=== PATIENT | female | born 1985 | race American Indian/Alaskan Native ===

== ENCOUNTER 2021-12-05 18:10 | Inpatient (IN) | payer MEDICAID ==
[2021-12-05] MEDS ORDERED: SODIUM CHLORIDE 0.9% 1000 ML 1,000 ML IV ONE (18:42)
[2021-12-05] MEDS ORDERED: ONDANSETRON 4 MG/2 ML INJ IV ONE (18:42)
[2021-12-05] MEDS ORDERED: MORPHINE 4 MG/1 ML INJ IV ONE (18:42)
--- NOTE | 2021-12-05 18:52 | Emergency Department Report ---
ED Abdominal Pain HPI - General Chief Complaint: Abdominal Pain Stated Complaint: RT SIDE FLANK PAIN Time Seen by Provider: 12/05/21 18:30 Source: patient Mode of arrival: Ambulatory Limitations: No Limitations - History of Present Illness Initial Comments: 36-year-old female presents to the ER today with complaints of right lower quadrant pain. Patient states her symptoms started yesterday. She described as a sharp pain which has been constant in nature. She states that the pain got worse today. She reports associated nausea and vomiting and decrease appetite and she reports temp of 101. She states she went to urgent care today and they sent her here to rule out appendicitis. She states her [facility] was 11/26/21. She denies abnl UTI or vag symptoms. She denies any abdominal surgery. MD Complaint: abdominal pain -: days(s) (1) - Related Data Allergies Allergy/AdvReac Type Severity Reaction Status Date / Time No Known Allergies Allergy Verified 12/05/21 18:18 ED Review of Systems ROS: Stated complaint: RT SIDE FLANK PAIN Other details as noted in HPI Comment: All other systems reviewed and negative Constitutional: fever ENT: denies: ear pain, throat pain Respiratory: denies: cough, shortness of breath, SOB with exertion, SOB at rest, wheezing Cardiovascular: denies: chest pain, palpitations Endocrine: no symptoms reported Gastrointestinal: abdominal pain, nausea, vomiting. denies: diarrhea, constipation, hematemesis, hematochezia Genitourinary: denies: urgency, dysuria, frequency, hematuria, discharge, abnormal menses, dyspareunia Musculoskeletal: denies: back pain, joint swelling, arthralgia Skin: as per HPI. denies: rash, lesions, change in color, change in hair/nails, pruritus Neurological: denies: headache, weakness, numbness, paresthesias, confusion, abnormal gait, vertigo Psychiatric: denies: anxiety, depression, auditory hallucinations, visual hallucinations, homicidal thoughts, suicidal thoughts Hematological/Lymphatic: denies: easy bleeding, easy bruising, swollen glands ED Past Medical Hx - Past Medical History Previous Medical History?: No - Surgical History Past Surgical History?: No ED Physical Exam - General Limitations: No Limitations General appearance: alert, in distress (mild due to pain ) - Head Head exam: Present: atraumatic, normocephalic, normal inspection - Eye Eye exam: Present: normal appearance, PERRL, EOMI Pupils: Present: normal accommodation - Neck Neck exam: Present: normal inspection, full ROM - Respiratory Respiratory exam: Present: normal lung sounds bilaterally. Absent: respiratory distress, wheezes, rales, rhonchi, stridor - Cardiovascular Cardiovascular Exam: Present: regular rate, normal rhythm, normal heart sounds - GI/Abdominal GI/Abdominal exam: Present: soft, tenderness (RLQ with guarding ), guarding. Absent: distended, rebound, rigid - Neurological Exam Neurological exam: Present: alert, oriented X3, CN II-XII intact, normal gait - Psychiatric Psychiatric exam: Present: normal affect, normal mood - Skin Skin exam: Present: intact ED Course Vital Signs 12/05/21 18:18 Temperature 99.6 F Pulse Rate 107 H Respiratory 16 Rate Blood Pressure 144/88 [Left] O2 Sat by Pulse 100 Oximetry ED Medical Decision Making - Lab Data Result diagrams: 12/05/21 18:56 12/05/21 18:56 Laboratory Tests 12/05/21 12/05/21 12/05/21 18:56 18:56 18:56 WBC 11.5 H RBC 4.59 Hgb 11.2 Hct 33.4 MCV 73 L MCH 24 L MCHC 33 RDW 16.9 H Plt Count 402 Seg Neutrophils % Boiler/Chiller Operator Sodium 135 L Potassium 4.0 Chloride 96.1 L Carbon Dioxide 23 Anion Gap 20 BUN 7 Creatinine 0.7 Estimated GFR > 60 BUN/Creatinine Ratio 10 Glucose 134 H Calcium 9.4 Total Bilirubin 0.50 Direct Bilirubin < 0.2 Indirect Bilirubin 0.3 AST 15 ALT 11 Alkaline Phosphatase 65 Total Protein 8.5 H Albumin 4.2 Albumin/Globulin Ratio 1.0 Lipase 8 L HCG, Qual Negative Urine Color Urine Turbidity Urine pH Ur Specific [place] Urine Protein Urine Glucose (UA) Urine Ketones Urine Blood Urine Nitrite Ur Reducing Substances Urine Bilirubin Urine Ictotest Urine Urobilinogen Ur Leukocyte Esterase Urine WBC (Auto) Urine RBC (Auto) U Epithel Cells (Auto) Urine Bacteria (Auto) Urine Mucus Urine Yeast (Budding) 12/05/21 Unknown WBC RBC Hgb Hct MCV MCH MCHC RDW Plt Count Seg Neutrophils % Sodium Potassium Chloride Carbon Dioxide Anion Gap BUN Creatinine Estimated GFR BUN/Creatinine Ratio Glucose Calcium Total Bilirubin Direct Bilirubin Indirect Bilirubin AST ALT Alkaline Phosphatase Total Protein Albumin Albumin/Globulin Ratio Lipase HCG, Qual Urine Color Yellow Urine Turbidity Turbid Urine pH 5.0 Ur Specific [place] 1.026 Urine Protein 30 mg/dl Urine Glucose (UA) Neg Urine Ketones 20 Urine Blood Neg Urine Nitrite Neg Ur Reducing Substances Not Reportable Urine Bilirubin Neg Urine Ictotest Not Reportable Urine Urobilinogen < 2.0 Ur Leukocyte Esterase Neg Urine WBC (Auto) 57.0 H Urine RBC (Auto) 10.0 U Epithel Cells (Auto) 8.0 Urine Bacteria (Auto) 1+ Urine Mucus 3+ Urine Yeast (Budding) 3+ - Radiology Data Radiology results: report reviewed Patient: GABRIELA ALLEN MR#: [id number] : 1985 Acct:[id number] Age/Sex: 36 / F ADM Date: 12/05/21 Loc: ED Attending Dr: Ordering Physician: MELINA MANUEL Date of Service: 12/05/21 Procedure(s): CT abdomen pelvis w con Accession Number(s): [id number] cc: MELINA MANUEL CT ABDOMEN AND PELVIS WITH INTRAVENOUS CONTRAST INDICATION / CLINICAL INFORMATION: RLQ pain. TECHNIQUE: 100 cc Omnipaque [address] scans at this location are performed using CT dose reduction for ALARA by means of automated exposure control. COMPARISON: None available. FINDINGS: ABDOMEN: There is an extensive inflammatory process in the right abdomen. There is localized extraluminal gas in the right lower quadrant in the mesenteric fat. There is a dilated tubular structure in the right lower quadrant which contains gas and fluid. There are a couple of large calcifications in or adjacent to the tubular structure characteristic of appendicoliths. There is prominent inflammation involving the fat in this region, extending both superiorly and inferiorly. There is a vhsh-hs-bpvnfjut amount of free fluid in the mid to lower pelvis. There is mild or free fluid in the right paracolic gutter extending to the inferior margin of the liver. The liver, spleen, gallbladder, bile ducts, pancreas, adrenal glands and kidneys are normal. No adenopathy is present. The lung bases are clear. PELVIS: There is a kvui-oq-rfxaekue amount of free fluid in the mid to lower pelvis. There is inflammation involving the fat in the right lower quadrant and pelvis. There are multiple uterine fibroids. I do not identify an ovarian mass. There is no evidence of colonic diverticulosis. I do not identify a hernia. No acute osseous abnormality is present. IMPRESSION: Moderately severe inflammatory process centered in the right lower quadrant is likely related to perforated acute appendicitis. There is associated localized extraluminal gas. Also present are phlegmon, free fluid and a couple of large appendicoliths. No drainable fluid collection is seen. There is no evidence of bowel obstruction. Signer Name: James Clark MD Signed: 12/05/2021 9:07 PM Workstation Name: [id number] Transcribed By: RT Dictated By: James Clark MD Electronically Authenticated By: James Clark MD Signed Date/Time: 12/05/212106 DD/ 99 TD/TT: - Medical Decision Making 2114: All labs reviewed including CT abdomen and pelvis with IV contrast which showed Moderately severe inflammatory process centered in the right lower quadrant is likely related to perforated acute appendicitis. There is associated localized extraluminal gas. Also present are phlegmon, free fluid and a couple of large appendicoliths. No drainable fluid collection is seen. There is no evidence of bowel obstruction. 2123: Discussed case with Dr espinoza, she recommend continued IV abx for now and she will likely take patient to OR tomorrow. Pt to be admitted to hospitalist 2128: Discussed case with Hospitalist, Dr Hanna for admission 2129: Discussed CT results with patient. She was made aware of the reason for admission. She expressed understanding and agreed with plan. She is currently resting comfortably and is stable. Critical care attestation.: If time is entered above; I have spent that time in minutes in the direct care of this critically ill patient, excluding procedure time. ED Disposition Clinical Impression: Perforated appendicitis Disposition: ADMITTED INPATIENT Is pt being admited?: Yes Condition: Stable Instructions: Abdominal Pain (ED)
[2021-12-05 19:16] LABS: Bacteria,Urine 1+ /HPF (Negative); Mucus,Urine 3+ /HPF
[2021-12-05 19:30] LABS: Alanine Aminotransferase 11 units/L (7-56); Albumin 4.2 g/dL (3.9-5); Blood Urea Nitrogen 7 mg/dL (7-17); Calcium 9.4 mg/dL (8.4-10.2); Hemolysis Index 9
[2021-12-05 19:34] LABS: Bilirubin,Urine NEG (Negative); Blood,Urine NEG (Negative); Color,Urine Yellow (Yellow); Urobilinogen,Urine < 2.0 mg/dL (<2.0)
[2021-12-05 19:38] LABS: BUN/Creatinine Ratio 10; Bilirubin,Direct < 0.2 mg/dL (0-0.2)
[2021-12-05 19:44] LABS: Hematocrit 33.4 % (30.3-42.9); Hemoglobin 11.2 gm/dl (10.1-14.3); Mean Corpuscular HGB Conc 33 % (30-34); Mean Corpuscular Volume 73 fl (79-97); Platelet Count 402 K/mm3 (140-440); Red Blood Count 4.59 M/mm3 (3.65-5.03); Red Cell Distribution Width 16.9 % (13.2-15.2)
--- NOTE | 2021-12-05 21:11 | Cat Scan Report ---
CT ABDOMEN AND PELVIS WITH INTRAVENOUS CONTRAST INDICATION / CLINICAL INFORMATION: RLQ pain. TECHNIQUE: 100 cc Omnipaque [address] scans at this location are performed using CT d ose reduction for SHERI by means of automated exposure control. COMPARISON: None available. FINDINGS: ABDOMEN: There is an extensive inflammatory process in the right abdomen. There is localized extralum inal gas in the right lower quadrant in the mesenteric fat. There is a dilated tubular structure in t he right lower quadrant which contains gas and fluid. There are a couple of large calcifications in o r adjacent to the tubular structure characteristic of appendicoliths. There is prominent inflammation involving the fat in this region, extending both superiorly and inferiorly. There is a uzoj-pj-secda ate amount of free fluid in the mid to lower pelvis. There is mild or free fluid in the right paracol ic gutter extending to the inferior margin of the liver. The liver, spleen, gallbladder, bile ducts, pancreas, adrenal glands and kidneys are normal. No adeno cameron is present. The lung bases are clear. PELVIS: There is a tpiu-dq-irsmansz amount of free fluid in the mid to lower pelvis. There is inflamm ation involving the fat in the right lower quadrant and pelvis. There are multiple uterine fibroids. I do not identify an ovarian mass. There is no evidence of colonic diverticulosis. I do not identify a hernia. No acute osseous abnormality is present. IMPRESSION: Moderately severe inflammatory process centered in the right lower quadrant is likely rel ated to perforated acute appendicitis. There is associated localized extraluminal gas. Also present a re phlegmon, free fluid and a couple of large appendicoliths. No drainable fluid collection is seen. There is no evidence of bowel obstruction. Signer Name: James Clark MD Signed: 12/05/2021 9:07 PM Workstation Name: [id number]
[2021-12-05] MEDS ORDERED: PIPERACILLIN/TAZOBACTAM 3.375 3.375 GM/50 ML BAG IV ONE (21:14)
[2021-12-05] MEDS ORDERED: ALBUTEROL 2.5 MG/3 ML NEBU IH PRN (21:41)
--- NOTE | 2021-12-05 21:47 | History and Physical Report ---
History of Present Illness Date of examination: 12/05/21 Date of admission: 12/05/21 Chief complaint: Abdominal pain History of present illness: 36-year-old female with no significant past medical history was brought to the emergency room because of right lower quadrant pain which is sharp 8/10 constant since yesterday. She states that the pain got worse today. She reports associated nausea and vomiting and decrease appetite and she reports temp of 101. She states she went to urgent care today and they sent her here to rule out appendicitis. She states her [facility] was 11/26/21. She denies abnl UTI or vag symptoms. She denies any abdominal surgery. In the emergency room CT scan of the abdomen pelvis showed moderately severe inflammatory process centered in the right lower quadrant is likely related to perforated acute appendicitis. Subsequently Case was discussed with surgery's were going to admit the patient put the patient on Zosyn 4.5 g IV every [address] Baker will take the patient to the OR in the morning Past History Past Medical History: No medical history Past Surgical History: No surgical history Social history: single, full code Family history: no significant family history Medications and Allergies Allergies Allergy/AdvReac Type Severity Reaction Status Date / Time No Known Allergies Allergy Verified 12/05/21 18:18 Review of Systems Gastrointestinal: abdominal pain, nausea, vomiting Exam - Constitutional Vitals: Temp Pulse Resp BP Pulse Ox 99.6 F 107 H 16 144/88 100 12/05/21 18:18 12/05/21 18:18 12/05/21 18:18 12/05/21 18:18 12/05/21 18:18 General appearance: Present: no acute distress, well-nourished - EENT Eyes: Present: PERRL ENT: hearing intact, clear oral mucosa - Neck Neck: Present: supple, normal ROM - Respiratory Respiratory effort: normal Respiratory: bilateral: CTA - Cardiovascular Heart Sounds: Present: S1 & S2. Absent: rub, click - Extremities Extremities: pulses symmetrical, No edema Peripheral Pulses: within normal limits - Abdominal General gastrointestinal: Present: soft, tender, non-distended, normal bowel sounds Female genitourinary: Present: normal - Integumentary Integumentary: Present: clear, warm, dry - Musculoskeletal Musculoskeletal: gait normal, strength equal bilaterally - Psychiatric Psychiatric: appropriate mood/affect, intact judgment & insight - Neurologic Neurologic: CNII-XII intact, moves all extremities Results - Labs CBC & Chem 7: 12/05/21 18:56 12/05/21 18:56 Labs: Laboratory Last Values WBC 11.5 K/mm3 (4.5-11.0) H 12/05/21 18:56 RBC 4.59 M/mm3 (3.65-5.03) 12/05/21 18:56 Hgb 11.2 gm/dl (10.1-14.3) 12/05/21 18:56 Hct 33.4 % (30.3-42.9) 12/05/21 18:56 MCV 73 fl (79-97) L 12/05/21 18:56 MCH 24 pg (28-32) L 12/05/21 18:56 MCHC 33 % (30-34) 12/05/21 18:56 RDW 16.9 % (13.2-15.2) H 12/05/21 18:56 Plt Count 402 K/mm3 (140-440) 12/05/21 18:56 Seg Neutrophils % Reel Repairer 12/05/21 18:56 Sodium 135 mmol/L (137-145) L 12/05/21 18:56 Potassium 4.0 mmol/L (3.6-5.0) 12/05/21 18:56 Chloride 96.1 mmol/L (98-107) L 12/05/21 18:56 Carbon Dioxide 23 mmol/L (22-30) 12/05/21 18:56 Anion Gap 20 mmol/L 12/05/21 18:56 BUN 7 mg/dL (7-17) 12/05/21 18:56 Creatinine 0.7 mg/dL (0.6-1.2) 12/05/21 18:56 Estimated GFR > 60 ml/min 12/05/21 18:56 BUN/Creatinine Ratio 10 % 12/05/21 18:56 Glucose 134 mg/dL (65-100) H 12/05/21 18:56 Calcium 9.4 mg/dL (8.4-10.2) 12/05/21 18:56 Total Bilirubin 0.50 mg/dL (0.1-1.2) 12/05/21 18:56 Direct Bilirubin < 0.2 mg/dL (0-0.2) 12/05/21 18:56 Indirect Bilirubin 0.3 mg/dL 12/05/21 18:56 AST 15 units/L (5-40) 12/05/21 18:56 ALT 11 units/L (7-56) 12/05/21 18:56 Alkaline Phosphatase 65 units/L (35-129) 12/05/21 18:56 Total Protein 8.5 g/dL (6.3-8.2) H 12/05/21 18:56 Albumin 4.2 g/dL (3.9-5) 12/05/21 18:56 Albumin/Globulin Ratio 1.0 % 12/05/21 18:56 Lipase 8 units/L (13-60) L 12/05/21 18:56 HCG, Qual Negative (Negative) 12/05/21 18:56 Urine Color Yellow (Yellow) 12/05/21 Unknown Urine Turbidity Turbid (Clear) 12/05/21 Unknown Urine pH 5.0 (5.0-7.0) 12/05/21 Unknown Ur Specific [place] 1.026 (1.003-1.030) 12/05/21 Unknown Urine Protein 30 mg/dl mg/dL (Negative) 12/05/21 Unknown Urine Glucose (UA) Neg mg/dL (Negative) 12/05/21 Unknown Urine Ketones 20 mg/dL (Negative) 12/05/21 Unknown Urine Blood Neg (Negative) 12/05/21 Unknown Urine Nitrite Neg (Negative) 12/05/21 Unknown Ur Reducing Substances Not Reportable 12/05/21 Unknown Urine Bilirubin Neg (Negative) 12/05/21 Unknown Urine Ictotest Not Reportable 12/05/21 Unknown Urine Urobilinogen < 2.0 mg/dL (<2.0) 12/05/21 Unknown Ur Leukocyte Esterase Neg (Negative) 12/05/21 Unknown Urine WBC (Auto) 57.0 /HPF (0.0-6.0) H 12/05/21 Unknown Urine RBC (Auto) 10.0 /HPF (0.0-6.0) 12/05/21 Unknown U Epithel Cells (Auto) 8.0 /HPF (0-13.0) 12/05/21 Unknown Urine Bacteria (Auto) 1+ /HPF (Negative) 12/05/21 Unknown Urine Mucus 3+ /HPF 12/05/21 Unknown Urine Yeast (Budding) 3+ /HPF 12/05/21 Unknown - Imaging and Cardiology CT scan - abdomen: report reviewed Assessment and Plan VTE prophylaxis?: Mechanical Plan of care discussed with patient/family: Yes - Patient Problems (1) Perforated appendicitis Status: Acute Plan to address problem: Admit the patient to the medical floor. NPO. D5 half-normal saline at the rate of 100 cc/h. Zosyn 4.5 g IV every 8 hours. We consult surgery Dr. Baker to see the patient in the morning for evaluation and possible surgery (2) Acute abdominal pain Status: Acute Plan to address problem: NPO. D5 half-normal saline at the rate of 100 cc/h. Pepcid 20 mg IV every 12 hours. Morphine 2 mg IV every 4 hours as needed (3) DVT prophylaxis Status: Acute Plan to address problem: SCD for DVT prophylaxis. Pepcid 20 mg IV every 12 hours for GI prophylaxis. Patient is a full code
[2021-12-05 21:52] LABS: Anisocytosis RARE; Basophils % (Manual) 0 % (0.0-1.8); Eosinophils % (Manual) 0 % (0.0-4.3); Hypochromasia 1+; Total Cells Counted 100
[2021-12-05] MEDS: FAMOTIDINE 20 MG/2 ML INJ IV SCH (22:10)
[2021-12-05] MEDS: HYDROmorphone 1 MG/1 ML INJ IV PRN (22:10)
[2021-12-06] MEDS: MORPHINE 2 MG/1 ML INJ IV PRN (00:38)
[2021-12-06] MEDS: D5W/0.45% NACL 1,000 ML IV SCH (00:39)
[2021-12-06] MEDS: HYDROmorphone 1 MG/1 ML INJ IV PRN ×2 (04:54→20:32)
[2021-12-06] MEDS: ACETAMINOPHEN 325 MG TAB PO PRN (04:56)
[2021-12-06] MEDS: PIPERACIL/TAZOBACTA 4.5/NS 100 4.5 GM/100 ML VIAL IV SCH ×3 (05:01→21:46)
[2021-12-06 06:01] LABS: Basophils % (Auto) 0.1 % (0.0-1.8); Hematocrit 32.4 % (30.3-42.9); Hemoglobin 10.3 gm/dl (10.1-14.3); Lymphocytes # (Auto) 0.4 K/mm3 (1.2-5.4); Mean Corpuscular HGB Conc 32 % (30-34); Mean Corpuscular Volume 73 fl (79-97); Monocytes # (Auto) 0.5 K/mm3 (0.0-0.8); Monocytes % (Auto) 6.7 % (0.0-7.3); Platelet Count 343 K/mm3 (140-440); Red Blood Count 4.44 M/mm3 (3.65-5.03); Red Cell Distribution Width 16.8 % (13.2-15.2)
[2021-12-06 06:13] LABS: BUN/Creatinine Ratio 7; Blood Urea Nitrogen 6 mg/dL (7-17); Hemolysis Index 3
[2021-12-06] MEDS ORDERED: HYDROmorphone 1 MG/1 ML INJ IV PRN (09:18)
--- NOTE | 2021-12-06 09:18 | Anesthesia Day of Surgery ---
Anesthesia Day of Surgery - Day of Surgery Patient Examined: Yes Patient H&P Reviewed: Yes Patient is NPO: Yes
--- NOTE | 2021-12-06 09:18 | Anesthesia Consultation ---
Anesthesia Consult and Med Hx Date of service: 12/06/21 - Airway Anesthetic Teeth Evaluation: Good ROM Head & Neck: Adequate Mental/Hyoid Distance: Adequate Mallampati Class: Class III Intubation Access Assessment: Possibly Difficult - Pre-Operative Health Status ASA Pre-Surgery Classification: ASA1 Proposed Anesthetic Plan: General - Pulmonary Hx Smoking: No Hx Respiratory Symptoms: No - Cardiovascular System Hx Hypertension: No - Central Nervous System CVA: No - Endocrine Hx Renal Disease: No Hx Liver Disease: No Hx Insulin Dependent Diabetes: No Hx Non-Insulin Dependent Diabetes: No Hx Thyroid Disease: No - Hematic Hx Anemia: Yes - Additional Comments Anesthesia Medical History Comments: No hx anesthetic complications.
--- NOTE | 2021-12-06 09:18 | Consultation ---
History of Present Illness Consult date: 12/06/21 Reason for consult: abdominal pain Chief complaint: Abdominal pain - History of present illness History of present illness: 36-year-old female with no past medical history who presented to the emergency r o with complaints of right lower abdominal pain that started 2 days ago. She states the pain started all of a sudden after she went out for dinner. The pain is sharp and localized to the right lower quadrant and does not radiate. Initially she thought it was food poisoning as she was also experiencing nausea, vomiting, diarrhea. She tried to take some medications at home which did not help. She took her temperature which was 101 and this prompted her to go to the urgent care. When she was evaluated at urgent care, she was advised to go to the emergency room for additional testing. In the emergency room she was found to be mildly tachycardic and a CT scan of the abdomen and pelvis revealed acute appendicitis with localized perforation. Today the patient states that she feels slightly better and her pain is well managed with medication being prescribed in the hospital. She has not had any vomiting. T-max of 103 as reported by patient's RN. Past History Past Medical History: No medical history Past Surgical History: No surgical history Social history: single, full code Family history: no significant family history Medications and Allergies Allergies Allergy/AdvReac Type Severity Reaction Status Date / Time No Known Allergies Allergy Verified 12/05/21 18:18 Active Meds: Active Medications Acetaminophen (Acetaminophen 325 Mg Tab) 650 mg PO Q4H PRN PRN Reason: Pain MILD(1-3)/Fever >100.5/VELASQUEZ Last Admin: 12/06/21 04:56 Dose: 650 mg Albuterol (Albuterol 2.5 Mg/3 Ml Nebu) 2.5 mg IH Q3HRT PRN PRN Reason: Shortness Of Breath Albuterol/Ipratropium (Ipratropium/Albuterol Sulfate 3 Ml Ampul.Neb) 1 ampul IH Q6HRT [facility] Famotidine (Famotidine 20 Mg/2 Ml Inj) 20 mg IV BID VITO Last Admin: 12/05/21 22:10 Dose: 20 mg Hydromorphone HCl (Hydromorphone 1 Mg/1 Ml Inj) 0.5 mg IV Q3H PRN PRN Reason: Pain , Severe (7-10) Last Admin: 12/06/21 04:54 Dose: 0.5 mg Dextrose/Sodium Chloride (D5/0.45ns) 1,000 mls @ 100 mls/hr IV DIRECT VITO Last Admin: 12/06/21 00:39 Dose: 100 mls/hr Piperacillin Sod/Tazobactam Sod (Zosyn/Ns 4.5gm/100ml) 4.5 gm in 100 mls @ 200 mls/hr IV Q8H VITO; Protocol Last Infusion: 12/06/21 05:40 Dose: Infused Morphine Sulfate (Morphine 2 Mg/1 Ml Inj) 2 mg IV Q4H PRN PRN Reason: Pain, Moderate (4-6) Last Admin: 12/06/21 00:38 Dose: 2 mg Ondansetron HCl (Ondansetron 4 Mg/2 Ml Inj) 4 mg IV Q8H PRN PRN Reason: Nausea And Vomiting Sodium Chloride (Sodium Chloride 0.9% 10 Ml Flush Syringe) 10 ml IV BID VITO Last Admin: 12/05/21 22:10 Dose: 10 ml Sodium Chloride (Sodium Chloride 0.9% 10 Ml Flush Syringe) 10 ml IV PRN PRN PRN Reason: LINE FLUSH Review of Systems All systems: negative (10 point ROS performed and negative except for that listed in HPI) Exam Vital Signs Temp Pulse Resp BP Pulse Ox 99.6 F 107 H 16 144/88 100 12/05/21 18:18 12/05/21 18:18 12/05/21 18:18 12/05/21 18:18 12/05/21 18:18 Narrative exam: Gen.: Awake, alert, oriented x3. No apparent distress ENT: Trachea midline. No lymphadenopathy. No scleral icterus or conjunctival pallor CV: S1, S2 present Respiratory: No audible wheezes Abdomen: Soft, nondistended, right lower quadrant tenderness to palpation with voluntary guarding. No rebound, rigidity Extremities: No clubbing, cyanosis, edema Results - Labs 12/06/21 05:25 12/06/21 05:25 Abnormal lab results 12/05/21 12/05/21 12/05/21 Range/Units 18:56 18:56 Unknown WBC 11.5 H (4.5-11.0) K/mm3 MCV 73 L (79-97) fl MCH 24 L (28-32) pg RDW 16.9 H (13.2-15.2) % Lymph % (Auto) (13.4-35.0) % Lymph # (Auto) (1.2-5.4) K/mm3 Seg Neutrophils % (40.0-70.0) % Seg Neuts % (Manual) 88.0 H (40.0-70.0) % Lymphocytes % (Manual) 5.0 L (13.4-35.0) % Seg Neutrophils # Man 10.1 H (1.8-7.7) K/mm3 Lymphocytes # (Manual) 0.6 L (1.2-5.4) K/mm3 Sodium 135 L (137-145) mmol/L Potassium (3.6-5.0) mmol/L Chloride 96.1 L (98-107) mmol/L BUN (7-17) mg/dL Glucose 134 H (65-100) mg/dL Calcium (8.4-10.2) mg/dL Total Protein 8.5 H (6.3-8.2) g/dL Lipase 8 L (13-60) units/L Urine WBC (Auto) 57.0 H (0.0-6.0) /HPF 12/06/21 12/06/21 Range/Units 05:25 05:25 WBC (4.5-11.0) K/mm3 MCV 73 L (79-97) fl MCH 23 L (28-32) pg RDW 16.8 H (13.2-15.2) % Lymph % (Auto) 5.0 L (13.4-35.0) % Lymph # (Auto) 0.4 L (1.2-5.4) K/mm3 Seg Neutrophils % 88.2 H (40.0-70.0) % Seg Neuts % (Manual) (40.0-70.0) % Lymphocytes % (Manual) (13.4-35.0) % Seg Neutrophils # Man (1.8-7.7) K/mm3 Lymphocytes # (Manual) (1.2-5.4) K/mm3 Sodium 134 L (137-145) mmol/L Potassium 3.3 L (3.6-5.0) mmol/L Chloride (98-107) mmol/L BUN 6 L (7-17) mg/dL Glucose 130 H (65-100) mg/dL Calcium 8.0 L (8.4-10.2) mg/dL Total Protein (6.3-8.2) g/dL Lipase (13-60) units/L Urine WBC (Auto) (0.0-6.0) /HPF Diabetes panel 12/05/21 12/06/21 Range/Units 18:56 05:25 Sodium 135 L 134 L (137-145) mmol/L Potassium 4.0 3.3 L (3.6-5.0) mmol/L Chloride 96.1 L 98.4 (98-107) mmol/L Carbon Dioxide 23 22 (22-30) mmol/L BUN 7 6 L (7-17) mg/dL Creatinine 0.7 0.9 (0.6-1.2) mg/dL Glucose 134 H 130 H (65-100) mg/dL Calcium 9.4 8.0 L (8.4-10.2) mg/dL AST 15 (5-40) units/L ALT 11 (7-56) units/L Alkaline Phosphatase 65 (35-129) units/L Total Protein 8.5 H (6.3-8.2) g/dL Albumin 4.2 (3.9-5) g/dL Calcium panel 12/05/21 12/06/21 Range/Units 18:56 05:25 Calcium 9.4 8.0 L (8.4-10.2) mg/dL Albumin 4.2 (3.9-5) g/dL Pituitary panel 12/05/21 12/06/21 Range/Units 18:56 05:25 Sodium 135 L 134 L (137-145) mmol/L Potassium 4.0 3.3 L (3.6-5.0) mmol/L Chloride 96.1 L 98.4 (98-107) mmol/L Carbon Dioxide 23 22 (22-30) mmol/L BUN 7 6 L (7-17) mg/dL Creatinine 0.7 0.9 (0.6-1.2) mg/dL Glucose 134 H 130 H (65-100) mg/dL Calcium 9.4 8.0 L (8.4-10.2) mg/dL Adrenal panel 12/05/21 12/06/21 Range/Units 18:56 05:25 Sodium 135 L 134 L (137-145) mmol/L Potassium 4.0 3.3 L (3.6-5.0) mmol/L Chloride 96.1 L 98.4 (98-107) mmol/L Carbon Dioxide 23 22 (22-30) mmol/L BUN 7 6 L (7-17) mg/dL Creatinine 0.7 0.9 (0.6-1.2) mg/dL Glucose 134 H 130 H (65-100) mg/dL Calcium 9.4 8.0 L (8.4-10.2) mg/dL Total Bilirubin 0.50 (0.1-1.2) mg/dL AST 15 (5-40) units/L ALT 11 (7-56) units/L Alkaline Phosphatase 65 (35-129) units/L Total Protein 8.5 H (6.3-8.2) g/dL Albumin 4.2 (3.9-5) g/dL - Imaging CT scan - abdomen: report reviewed, image reviewed CT scan - pelvis: report reviewed, image reviewed Assessment and Plan 36-year-old female with 1. acute appendicitis with localized perforation 2. sepsis 2/2 #1 Plan: 1. NPO 2. IV fluids 3. IV antibiotics -Zosyn 4. As needed pain and nausea control 5. DVT prophylaxis 6. Recommend OR for laparoscopic appendectomy, possible exploratory laparotomy, possible colon resection.. I discussed results of the CT scan along with these recommendations to the patient. All risks, benefits, alternatives to surgery were discussed including but not limited to infection, bleeding, injury to surrounding structures, possible conversion to open surgery, possible need for colon resection, need for drain, and any additional procedures. The patient understands and is agreeable. Consent obtained. We will proceed to the OR today. Thank you for this consultation. Please call with any questions or concerns. Evaluation and treatment of this patient was during the time of the national and state emergency arising from COVID19 coronavirus pandemic. Treatment and procedures performed meet the current and available best practice and guidelines for patient during the COVID pandemic.
[2021-12-06] MEDS: IPRATROPIUM/ALBUTEROL SULFATE 3 ML AMPUL.NEB IH SCH ×3 (09:37→21:26)
[2021-12-06] MEDS ORDERED: MIDAZOLAM 2 MG/2 ML INJ IV NR (10:00)
[2021-12-06] MEDS ORDERED: SCOPOLAMINE TRANSDERMAL PATCH 72 HR TD NR (10:00)
[2021-12-06] MEDS: LACTATED RINGERS 1,000 ML IV SCH ×2 (10:05→17:26)
[2021-12-06] MEDS ORDERED: LIDOCAINE (1%) 10 MG/1 ML VIAL 20 ML MDV ONE (10:35)
[2021-12-06] MEDS ORDERED: BUPIVACAINE/PF (0.5%) 5 MG/1 ML 30 ML VIAL INFILTRATI ONE ×2 (10:35→11:41)
[2021-12-06] MEDS ORDERED: ROCURONIUM 50 MG/5 ML INJ IV ONE ×2 (10:42→12:16)
[2021-12-06] MEDS ORDERED: fentaNYL 100 MCG/2 ML INJ ONE (10:42)
[2021-12-06] MEDS ORDERED: LIDOCAINE MPF (2%) 20 MG/1 ML VIAL 5 ML ONE (10:42)
[2021-12-06] MEDS ORDERED: propofoL 200 MG/20 ML VIAL IV ONE (10:43)
[2021-12-06] MEDS ORDERED: FAMOTIDINE 20 MG/2 ML INJ IV NR (11:00)
[2021-12-06] MEDS ORDERED: KETAMINE/STERILE WATER 50 MG/ML SYRINGE ONE (11:06)
[2021-12-06] MEDS ORDERED: MIDAZOLAM 2 MG/2 ML INJ ONE (11:06)
[2021-12-06] MEDS ORDERED: WATER FOR IRRIG STERILE 1,500 ML BOTTLE IR ONE (11:41)
[2021-12-06] MEDS ORDERED: SODIUM CHLORIDE 0.9% IRR 1,500 ML BOTTLE IR ONE (11:41)
[2021-12-06] MEDS ORDERED: LIDOCAINE (1%) 10 MG/1 ML VIAL 20 ML MDV INFILTRATI ONE (11:41)
[2021-12-06] MEDS ORDERED: SODIUM CHLORIDE 0.9% IRRIG SOLN 2000 ML IR ONE (11:55)
[2021-12-06] MEDS ORDERED: HYDROmorphone 1 MG/1 ML INJ ONE (12:02)
[2021-12-06] MEDS ORDERED: ACETAMINOPHEN IV 1,000 MG/100 ML BOTTLE IV NR (12:08)
[2021-12-06] MEDS ORDERED: LACTATED RINGERS 1,000 ML ONE ×2 (12:15→14:44)
--- NOTE | 2021-12-06 13:51 | Progress Note ---
Assessment and Plan Assessment and plan: #Acute perforated appendicitis Heart rate as high as 115, WBC 11.5. Patient's RN reported T-max of 103. Visualized on CT abdomen/pelvis Continue Zosyn 4.5 g every 8 hours General surgery consulted; appreciate recs. Undergoing laparoscopic cholecystectomy today with Dr. Baker. Continue antiemetics and analgesics as needed #Hypokalemia Potassium 3.3 Repleted. Continue to monitor #Advanced care planning -Disease education conducted, care plan discussed, diagnoses discussed, prognosis discussed, and patient acknowledges understanding with care plan -Time: +30 min Disposition Plan: Continue medical management Total Time Spent with Patient (Minutes): 30 min History Interval history: No acute events overnight. Hospitalist Physical - Constitutional Vitals: Temp Pulse Resp BP Pulse Ox 99.3 F 105 H 18 106/67 98 12/06/21 09:35 12/06/21 09:35 12/06/21 09:35 12/06/21 09:35 12/06/21 09:35 General appearance: Present: no acute distress, well-nourished - EENT Eyes: Present: PERRL, EOM intact ENT: hearing intact, clear oral mucosa, dentition normal - Neck Neck: Present: supple, normal ROM - Respiratory Respiratory effort: normal - Cardiovascular Rhythm: regular Heart Sounds: Present: S1 & S2 - Extremities Extremities: no ischemia, pulses intact, pulses symmetrical, No edema, normal temperature, normal color, Full ROM Peripheral Pulses: within normal limits - Abdominal General gastrointestinal: soft, non-tender, non-distended, normal bowel sounds - Integumentary Integumentary: Present: clear, warm, dry - Psychiatric Psychiatric: appropriate mood/affect, intact judgment & insight, memory intact, cooperative - Neurologic Neurologic: CNII-XII intact, moves all extremities - Allied Health Allied health notes reviewed: nursing Results - Labs CBC & Chem 7: 12/06/21 05:25 12/06/21 05:25 Labs: Laboratory Last Values WBC 7.8 K/mm3 (4.5-11.0) 12/06/21 05:25 RBC 4.44 M/mm3 (3.65-5.03) 12/06/21 05:25 Hgb 10.3 gm/dl (10.1-14.3) 12/06/21 05:25 Hct 32.4 % (30.3-42.9) 12/06/21 05:25 MCV 73 fl (79-97) L 12/06/21 05:25 MCH 23 pg (28-32) L 12/06/21 05:25 MCHC 32 % (30-34) 12/06/21 05:25 RDW 16.8 % (13.2-15.2) H 12/06/21 05:25 Plt Count 343 K/mm3 (140-440) 12/06/21 05:25 Lymph % (Auto) 5.0 % (13.4-35.0) L 12/06/21 05:25 [place] % (Auto) 6.7 % (0.0-7.3) 12/06/21 05:25 Eos % (Auto) 0.0 % (0.0-4.3) 12/06/21 05:25 Baso % (Auto) 0.1 % (0.0-1.8) 12/06/21 05:25 Lymph # (Auto) 0.4 K/mm3 (1.2-5.4) L 12/06/21 05:25 [place] # (Auto) 0.5 K/mm3 (0.0-0.8) 12/06/21 05:25 Eos # (Auto) 0.0 K/mm3 (0.0-0.4) 12/06/21 05:25 Baso # (Auto) 0.0 K/mm3 (0.0-0.1) 12/06/21 05:25 Add Manual Diff Complete 12/05/21 18:56 Total Counted 100 12/05/21 18:56 Seg Neutrophils % 88.2 % (40.0-70.0) H 12/06/21 05:25 Seg Neuts % (Manual) 88.0 % (40.0-70.0) H 12/05/21 18:56 Band Neutrophils % 0 % 12/05/21 18:56 Lymphocytes % (Manual) 5.0 % (13.4-35.0) L 12/05/21 18:56 Reactive Lymphs % (Man) 0 % 12/05/21 18:56 Monocytes % (Manual) 7.0 % (0.0-7.3) 12/05/21 18:56 Eosinophils % (Manual) 0 % (0.0-4.3) 12/05/21 18:56 Basophils % (Manual) 0 % (0.0-1.8) 12/05/21 18:56 Metamyelocytes % 0 % 12/05/21 18:56 Myelocytes % 0 % 12/05/21 18:56 Promyelocytes % 0 % 12/05/21 18:56 Blast Cells % 0 % 12/05/21 18:56 Nucleated RBC % Not Reportable 12/05/21 18:56 Seg Neutrophils # 6.9 K/mm3 (1.8-7.7) 12/06/21 05:25 Seg Neutrophils # Man 10.1 K/mm3 (1.8-7.7) H 12/05/21 18:56 Band Neutrophils # 0.0 K/mm3 12/05/21 18:56 Lymphocytes # (Manual) 0.6 K/mm3 (1.2-5.4) L 12/05/21 18:56 Abs React Lymphs (Man) 0.0 K/mm3 12/05/21 18:56 Monocytes # (Manual) 0.8 K/mm3 (0.0-0.8) 12/05/21 18:56 Eosinophils # (Manual) 0.0 K/mm3 (0.0-0.4) 12/05/21 18:56 Basophils # (Manual) 0.0 K/mm3 (0.0-0.1) 12/05/21 18:56 Metamyelocytes # 0.0 K/mm3 12/05/21 18:56 Myelocytes # 0.0 K/mm3 12/05/21 18:56 Promyelocytes # 0.0 K/mm3 12/05/21 18:56 Blast Cells # 0.0 K/mm3 12/05/21 18:56 WBC Morphology Not Reportable 12/05/21 18:56 Hypersegmented Neuts Not Reportable 12/05/21 18:56 Hyposegmented Neuts Not Reportable 12/05/21 18:56 Hypogranular Neuts Not Reportable 12/05/21 18:56 Smudge Cells Not Reportable 12/05/21 18:56 Toxic Granulation Not Reportable 12/05/21 18:56 Toxic Vacuolation Not Reportable 12/05/21 18:56 Dohle Bodies Not Reportable 12/05/21 18:56 Pelger-Huet Anomaly Not Reportable 12/05/21 18:56 Meron Rods Not Reportable 12/05/21 18:56 Platelet Estimate Not Reportable 12/05/21 18:56 Clumped Platelets Not Reportable 12/05/21 18:56 Plt Clumps, EDTA Not Reportable 12/05/21 18:56 Large Platelets Not Reportable 12/05/21 18:56 Giant Platelets Not Reportable 12/05/21 18:56 Platelet Satelliting Not Reportable 12/05/21 18:56 Plt Morphology Comment Not Reportable 12/05/21 18:56 RBC Morphology Not Reportable 12/05/21 18:56 Dimorphic RBCs Not Reportable 12/05/21 18:56 Polychromasia Not Reportable 12/05/21 18:56 Hypochromasia 1+ 12/05/21 18:56 Poikilocytosis Not Reportable 12/05/21 18:56 Anisocytosis Rare 12/05/21 18:56 Microcytosis Not Reportable 12/05/21 18:56 Macrocytosis Not Reportable 12/05/21 18:56 Spherocytes Not Reportable 12/05/21 18:56 Pappenheimer Bodies Not Reportable 12/05/21 18:56 Sickle Cells Not Reportable 12/05/21 18:56 Target Cells Not Reportable 12/05/21 18:56 Tear Drop Cells Not Reportable 12/05/21 18:56 Ovalocytes Not Reportable 12/05/21 18:56 Helmet Cells Not Reportable 12/05/21 18:56 [place] Bodies Not Reportable 12/05/21 18:56 [place] Rings Not Reportable 12/05/21 18:56 [place] Cells Not Reportable 12/05/21 18:56 Bite Cells Not Reportable 12/05/21 18:56 Crenated Cell Not Reportable 12/05/21 18:56 Elliptocytes Not Reportable 12/05/21 18:56 Acanthocytes (Spur) Not Reportable 12/05/21 18:56 Rouleaux Not Reportable 12/05/21 18:56 Hemoglobin C Crystals Not Reportable 12/05/21 18:56 Schistocytes Not Reportable 12/05/21 18:56 Malaria parasites Not Reportable 12/05/21 18:56 Angel Bodies Not Reportable 12/05/21 18:56 Hem Pathologist Commnt No 12/05/21 18:56 Sodium 134 mmol/L (137-145) L 12/06/21 05:25 Potassium 3.3 mmol/L (3.6-5.0) L 12/06/21 05:25 Chloride 98.4 mmol/L (98-107) 12/06/21 05:25 Carbon Dioxide 22 mmol/L (22-30) 12/06/21 05:25 Anion Gap 17 mmol/L 12/06/21 05:25 BUN 6 mg/dL (7-17) L 12/06/21 05:25 Creatinine 0.9 mg/dL (0.6-1.2) 12/06/21 05:25 Estimated GFR > 60 ml/min 12/06/21 05:25 BUN/Creatinine Ratio 7 % 12/06/21 05:25 Glucose 130 mg/dL (65-100) H 12/06/21 05:25 Lactic Acid 1.70 mmol/L (0.7-2.0) 12/05/21 21:21 Calcium 8.0 mg/dL (8.4-10.2) L 12/06/21 05:25 Total Bilirubin 0.50 mg/dL (0.1-1.2) 12/05/21 18:56 Direct Bilirubin < 0.2 mg/dL (0-0.2) 12/05/21 18:56 Indirect Bilirubin 0.3 mg/dL 12/05/21 18:56 AST 15 units/L (5-40) 12/05/21 18:56 ALT 11 units/L (7-56) 12/05/21 18:56 Alkaline Phosphatase 65 units/L (35-129) 12/05/21 18:56 Total Protein 8.5 g/dL (6.3-8.2) H 12/05/21 18:56 Albumin 4.2 g/dL (3.9-5) 12/05/21 18:56 Albumin/Globulin Ratio 1.0 % 12/05/21 18:56 Lipase 8 units/L (13-60) L 12/05/21 18:56 HCG, Qual Negative (Negative) 12/05/21 18:56 Urine Color Yellow (Yellow) 12/05/21 Unknown Urine Turbidity Turbid (Clear) 12/05/21 Unknown Urine pH 5.0 (5.0-7.0) 12/05/21 Unknown Ur Specific [place] 1.026 (1.003-1.030) 12/05/21 Unknown Urine Protein 30 mg/dl mg/dL (Negative) 12/05/21 Unknown Urine Glucose (UA) Neg mg/dL (Negative) 12/05/21 Unknown Urine Ketones 20 mg/dL (Negative) 12/05/21 Unknown Urine Blood Neg (Negative) 12/05/21 Unknown Urine Nitrite Neg (Negative) 12/05/21 Unknown Ur Reducing Substances Not Reportable 12/05/21 Unknown Urine Bilirubin Neg (Negative) 12/05/21 Unknown Urine Ictotest Not Reportable 12/05/21 Unknown Urine Urobilinogen < 2.0 mg/dL (<2.0) 12/05/21 Unknown Ur Leukocyte Esterase Neg (Negative) 12/05/21 Unknown Urine WBC (Auto) 57.0 /HPF (0.0-6.0) H 12/05/21 Unknown Urine RBC (Auto) 10.0 /HPF (0.0-6.0) 12/05/21 Unknown U Epithel Cells (Auto) 8.0 /HPF (0-13.0) 12/05/21 Unknown Urine Bacteria (Auto) 1+ /HPF (Negative) 12/05/21 Unknown Urine Mucus 3+ /HPF 12/05/21 Unknown Urine Yeast (Budding) 3+ /HPF 12/05/21 Unknown Blood Type O POSITIVE 12/06/21 09:25 Antibody Screen Negative 12/06/21 09:25 Microbiology: Microbiology 12/05/21 21:21 Peripheral/Venous Blood Culture - Preliminary Culture in Progress 12/05/21 21:21 Peripheral/Venous Blood Culture - Preliminary Culture in Progress [place]/IV: Voiding Method Toilet Active Medications - Current Medications Current Medications: Generic Name Dose Route Start Last Admin Trade Name Freq PRN Reason Stop Dose Admin Acetaminophen 650 mg 12/05/21 21:41 12/06/21 04:56 Acetaminophen 325 Mg Tab PO 650 mg Q4H PRN Administration Pain MILD(1-3)/Fever >100.5/VELASQUEZ Albuterol 2.5 mg 12/05/21 21:41 Albuterol 2.5 Mg/3 Ml Nebu IH Q3HRT PRN Shortness Of Breath Albuterol/Ipratropium 1 ampul 12/06/21 02:00 12/06/21 09:37 Ipratropium/Albuterol Sulfate 3 Ml Ampul.Neb IH Not Given Q6HRT VITO Famotidine 20 mg 12/05/21 22:00 12/05/21 22:10 Famotidine 20 Mg/2 Ml Inj IV 20 mg BID VITO Administration Famotidine 20 mg 12/06/21 11:00 12/06/21 10:10 Famotidine 20 Mg/2 Ml Inj IV 12/06/21 18:00 20 mg PREOP NR Administration Hydromorphone HCl 0.5 mg 12/05/21 21:41 12/06/21 04:54 Hydromorphone 1 Mg/1 Ml Inj IV 0.5 mg Q3H PRN Administration Pain , Severe (7-10) Hydromorphone HCl 0.5 mg 12/06/21 09:18 Hydromorphone 1 Mg/1 Ml Inj IV 12/06/21 23:00 Q10MIN PRN Pain , Severe (7-10) Dextrose/Sodium Chloride 1,000 mls @ 100 mls/hr 12/05/21 22:00 12/06/21 00:39 D5/0.45ns IV 100 mls/hr DIRECT VITO Administration Piperacillin Sod/Tazobactam Sod 4.5 gm in 100 mls @ 200 mls/hr 12/06/21 06:00 12/06/21 05:40 Zosyn/Ns 4.5gm/100ml IV Infused Q8H VITO Infusion Protocol Lactated Ringer's 1,000 mls @ 100 mls/hr 12/06/21 09:30 12/06/21 10:05 Lactated Ringers IV 12/07/21 09:29 100 mls/hr DIRECT VITO Administration Acetaminophen 1,000 mg in 100 mls @ 400 mls/hr 12/06/21 12:08 Acetaminophen Iv IV 12/06/21 18:00 PREOP NR Midazolam HCl 2 mg 12/06/21 10:00 Midazolam 2 Mg/2 Ml Inj IV 12/06/21 23:59 PREOP NR Morphine Sulfate 2 mg 12/05/21 21:41 12/06/21 00:38 Morphine 2 Mg/1 Ml Inj IV 2 mg Q4H PRN Administration Pain, Moderate (4-6) Ondansetron HCl 4 mg 12/05/21 21:41 Ondansetron 4 Mg/2 Ml Inj IV Q8H PRN Nausea And Vomiting Scopolamine 1 each 12/06/21 10:00 12/06/21 10:03 Scopolamine Transdermal Patch 72 Hr TD 12/06/21 23:00 1 each PREOP NR Administration Sodium Chloride 10 ml 12/05/21 22:00 12/05/21 22:10 Sodium Chloride 0.9% 10 Ml Flush Syringe IV 10 ml BID VITO Administration Sodium Chloride 10 ml 12/05/21 21:41 Sodium Chloride 0.9% 10 Ml Flush Syringe IV PRN PRN LINE FLUSH
[2021-12-06] MEDS ORDERED: GLYCOPYRROLATE 0.4 MG/2 ML INJ ONE (14:57)
[2021-12-06] MEDS ORDERED: NEOSTIGMINE 10MG/10 ML INJ MDV ONE (14:58)
[2021-12-06] MEDS ORDERED: ONDANSETRON 4 MG/2 ML INJ ONE (15:03)
--- NOTE | 2021-12-06 15:15 | Post Operative Note ---
Pre-op diagnosis: perforated appendicitis Post-op diagnosis: other (perforated appendicitis with abscess) Findings: Severe inflammation of small bowel mesentery at ileocecal junction. Adhesions from terminal ileum to lateral abdominal wall Appendix retrocecal with perforation through small bowel mesentery, multiple appendicoliths Uo: 600cc Procedure: laparoscopic hand assisted lysis of adhesions, ileocecectomy Anesthesia: GETA, local Surgeon: DARINEL NICOLAS Pals Nurse: VIVIAN BHATTI Estimated blood loss: 50-100ml Pathology: list (ileum cecum and appendix) Specimen disposition: to lab Condition: stable Disposition: PACU
--- NOTE | 2021-12-06 15:56 | Operative Report ---
Operative Report Operative Report: Pre-op diagnosis: perforated appendicitis Post-op diagnosis: other (perforated appendicitis with abscess) Findings: Severe inflammation of small bowel mesentery at ileocecal junction. Adhesions from terminal ileum to lateral abdominal wall Appendix retrocecal with perforation through small bowel mesentery, multiple appendicoliths Uo: 600cc Procedure: laparoscopic hand assisted lysis of adhesions, ileocecectomy Anesthesia: GETA, local Surgeon: DARINEL NICOLAS Engineer Second Assistant: VIVIAN BHATTI Estimated blood loss: 50-100ml Pathology: list (ileum cecum and appendix) Specimen disposition: to lab Condition: stable Disposition: PACU HPI and indication: Patient is a 36-year-old female who presented to the emergency room with acute onset abdominal pain 2 days prior to presentation. She was found to have a mild leukocytosis, fever, and CT scan consistent with perforated appendicitis with contained abscess. It was recommended that she undergo appendectomy. The patient was maintained n.p.o., on IV fluids, on IV antibiotics. All risks, benefits, alternatives to appendectomy were discussed with the patient and questions answered. Consent was obtained. Procedure detail: Patient was identified in the preoperative area, taken back to the operating room and placed on the operating table in supine position. After anesthesia was induced both arms were tucked and all bony prominences padded appropriately. A Cortez catheter was sterilely placed by the circulating nurse. The abdomen was prepped and draped in usual sterile fashion a timeout performed. Local anesthetic was infiltrated into the skin at all incision sites. A 5 mm incision was made just above the umbilicus through which a Veress needle was inserted. The Veress needle position was confirmed using the saline drop test and the abdomen insufflated to 15 mmHg without incident. The Veress needle was then removed and a 5 mm Optiview trocar placed through this incision. The abdomen was inspected and there was no underlying injury to any of the abdominal structures. The patient was placed in Trendelenburg and tilted to the left. An additional 12 mm left lower quadrant trocar and a 5 mm suprapubic trocar were placed under direct visualization. Upon examination of the abdomen there was purulent fluid in the pelvis, right paracolic gutter, and Morison's pouch. This was evacuated using suction welfare manager. There was severe inflammation in the right lower quadrant. I started by tracing the small bowel to the terminal ileum. The ileum was densely adhered to the right abdominal sidewall. These adhesions were very carefully taken down using the harmonic scalpel. The small bowel was freed from the lateral abdominal wall and the dissection was carried up towards the cecum. The white line of Toldt was taken down in order to mobilize the lateral aspect of the cecum. Adhesions from the omentum to the small bowel mesentery were dissected using a combination of blunt dissection and harmonic scalpel. There was necrosis of 2 small areas of the mesenteric fat which is where a contained mesenteric abscess was found. This was unroofed with the harmonic scalpel, evacuated. The ileocecal junction was identified. There appeared to be a blind structure leading back to the cecum at the ileocolic junction. This was dissected from the small bowel mesentery using the harmonic scalpel and stapled using an Coderwall flex 45 mm white load stapler at what was felt to be the base entering the cecum. This was placed into an Endo Catch bag and removed via the 12 mm port. This was opened and examined on the back table and appeared to be the ileocolic fat pad with fat necrosis, along with an inflamed lymph node. An additional 5 mm left upper quadrant retail assistant port was placed under direct visualization. At this point, we return to examining the area of the right lower quadrant to identify the appendix. Despite completely mobilizing the terminal ileum, cecum, ascending colon the appendix was not confidently visualized. Therefore it was decided to perform an ileocecectomy. The ileocolic vessels were identified and ligated using the harmonic scalpel. The mesentery in this area was inflamed. Upon ligating these blood vessels and further dissecting the mesentery a tubular structure was identified which was consistent with the appendix. This was densely adherent to the mesentery of the small bowel and it appeared to have perforated through the mesentery. I extended the supraumbilical incision in the midline in order to accommodate the placement of an John wound protector and HandPort. The incision was elongated using a 10 blade and dissection carried down through the subcutaneous tissue and fascia using electrocautery. An John hand port was placed through this incision and any additional adhesions to the colon dissected bluntly and using the harmonic scalpel. Once the specimen was completely mobilized it was brought through the wound protector. A window was created in the mesentery of the small bowel at the intended transection site approximately 10 cm from the ileocecal valve. The small bowel was stapled off using a RAMY 75 mm blue load stapler. A window was made in the mesentery of the colon just distal to the cecum and the cecum was transected using a RAMY 75 mm blue load stapler. The mesentery was divided using the harmonic scalpel. The specimen contained the appendix, terminal ileum, and cecum. The appendix appeared perforated in multiple locations with fecaliths palpated throughout. At this point I created a [id number] functional end-to-end enterocolonic anastomosis. The small bowel and colon were aligned along the antimesenteric borders. Enterotomies were created using electrocautery and the anastomosis was created using a RAMY 75 mm blue load stapler. The staple line was examined and no bleeding was identified. The common channel was closed using a running 2-0 VLoc stitch and oversewn using 3-0 silk Lembert stitches. A 3-0 silk seromuscular stitch was placed at the distal aspect of the staple line in order to reduce tension. The common channel was palpated and widely patent. The bowel was placed back into normal anatomic position. The abdomen was irrigated and hemostasis very carefully ensured. The patient was placed in neutral position. The anastomosis was examined and there was no twisting. A 19 Lebanese David drain was placed into the abdomen, positioned in the right paracolic gutter and brought out via the suprapubic port. This was sutured to the skin using a 2-0 nylon drain stitch. The 12 mm port was then removed and the fascia closed with an 0 Vicryl stitch using the Matt Henderson device. The wound protector was removed and the fascia closed using a #1 running PDS stitch. The remaining port was then removed and the abdomen desufflated. All incisions were infiltrated with local anesthetic. The deep layer of the midline incision was closed using 3-0 Vicryl interrupted stitches. All skin incisions were closed with 4-0 Monocryl subcuticular stitches and skin glue. A drain sponge was applied to the JACKLYN drain and secured with Tegaderm. At the end of the case all sponge, instrument, sharp counts were correct x2. The Cortez catheter was removed. The patient was awoken from anesthesia, extubated, taken to PACU in stable condition. Patient's mother was updated.
--- NOTE | 2021-12-06 16:49 | Post Anesthesia Evaluation ---
- Post Anesthesia Evaluation Patient Participated: Yes Airway Patent: Yes Stable Respiratory Function: Yes Nausea/Vomiting: No Temp > 96.8F: Yes Pain Manageable: Yes Adequeate Hydration: Yes Anesthesia Complications: No
[2021-12-06] MEDS: ONDANSETRON 4 MG/2 ML INJ IV PRN (17:31)
[2021-12-06] MEDS: FAMOTIDINE 20 MG/2 ML INJ IV SCH ×2 (19:40→21:46)
[2021-12-07] MEDS: IPRATROPIUM/ALBUTEROL SULFATE 3 ML AMPUL.NEB IH SCH (02:47)
[2021-12-07] MEDS: HYDROmorphone 1 MG/1 ML INJ IV PRN (03:30)
[2021-12-07] MEDS: LACTATED RINGERS 1,000 ML IV SCH (03:34)
[2021-12-07] MEDS: PIPERACIL/TAZOBACTA 4.5/NS 100 4.5 GM/100 ML VIAL IV SCH ×3 (06:21→21:47)
[2021-12-07 06:35] LABS: Basophils % (Auto) 0.1 % (0.0-1.8); Hematocrit 29.1 % (30.3-42.9); Hemoglobin 9.4 gm/dl (10.1-14.3); Lymphocytes # (Auto) 0.4 K/mm3 (1.2-5.4); Lymphocytes % (Auto) 5.2 % (13.4-35.0); Mean Corpuscular HGB Conc 32 % (30-34); Mean Corpuscular Volume 73 fl (79-97); Monocytes # (Auto) 0.4 K/mm3 (0.0-0.8); Monocytes % (Auto) 5.5 % (0.0-7.3); Platelet Count 301 K/mm3 (140-440); Red Blood Count 3.98 M/mm3 (3.65-5.03); Red Cell Distribution Width 17.1 % (13.2-15.2)
[2021-12-07 06:49] LABS: Alanine Aminotransferase 10 units/L (7-56); Albumin 3.2 g/dL (3.9-5); BUN/Creatinine Ratio 9; Blood Urea Nitrogen 8 mg/dL (7-17); Calcium 8.1 mg/dL (8.4-10.2); Hemolysis Index 0
[2021-12-07] MEDS: MORPHINE 2 MG/1 ML INJ IV PRN (08:40)
--- NOTE | 2021-12-07 09:09 | Post Anesthesia Evaluation ---
- Post Anesthesia Evaluation Patient Participated: Yes Airway Patent: Yes Stable Respiratory Function: Yes Nausea/Vomiting: No Temp > 96.8F: No Pain Manageable: Yes Adequeate Hydration: Yes Anesthesia Complications: Yes Block Receding Appropriately: Not Applicable Patient on Ventilator: No
[2021-12-07] MEDS: FAMOTIDINE 20 MG/2 ML INJ IV SCH ×2 (09:37→21:48)
--- NOTE | 2021-12-07 10:17 | Progress Note ---
Assessment and Plan 36 yo F s/p laparoscopic hand assisted lysis of adhesions, ileocecectomy, POD 1 for perforated appendicitis with abscess Plan: 1. CLD 2. IVF 3. IV abx - zosyn 4. prn pain and nausea control - will add PO percocet PRN and IV toradol q6h 5. OOB/ambulate 6. IS/pulm toilet 7. ice to incisions 8. monitor JACKLYN drain output 9. follow up blcx and ucx Than you, please call with questions. Subjective Date of service: 12/07/21 Narrative: Pt seen and examined. c/o incisional pain and pain near Jacklyn drain. No n/v. Tolerating clear liquid diet. Poor appetite. Afebrile. Objective Vital Signs - 12hr 12/06/21 12/07/21 12/07/21 23:00 01:29 05:20 Temperature 98.9 F 99.2 F Pulse Rate 99 H 107 H Respiratory 20 19 Rate Blood Pressure 115/65 113/71 O2 Sat by Pulse 100 99 98 Oximetry 12/07/21 12/07/21 06:57 08:41 Temperature Pulse Rate Respiratory Rate Blood Pressure O2 Sat by Pulse 98 100 Oximetry - General physical appearance Narrative Exam: Gen: AAox3. NAD CV: s1, S2+ Resp: even and unlabored Abd: soft, ND, mild incisional TTP. JACKLYN drain is serosang/cloudy. Incisions c/d/i Ext: no c/c/e - Labs 12/07/21 06:06 12/07/21 06:06 Diabetes panel 12/07/21 Range/Units 06:06 Sodium 137 (137-145) mmol/L Potassium 3.7 (3.6-5.0) mmol/L Chloride 99.9 (98-107) mmol/L Carbon Dioxide 26 (22-30) mmol/L BUN 8 (7-17) mg/dL Creatinine 0.9 (0.6-1.2) mg/dL Glucose 120 H (65-100) mg/dL Calcium 8.1 L (8.4-10.2) mg/dL AST 14 (5-40) units/L ALT 10 (7-56) units/L Alkaline Phosphatase 57 (35-129) units/L Total Protein 7.3 (6.3-8.2) g/dL Albumin 3.2 L (3.9-5) g/dL Calcium panel 12/07/21 Range/Units 06:06 Calcium 8.1 L (8.4-10.2) mg/dL Albumin 3.2 L (3.9-5) g/dL Pituitary panel 12/07/21 Range/Units 06:06 Sodium 137 (137-145) mmol/L Potassium 3.7 (3.6-5.0) mmol/L Chloride 99.9 (98-107) mmol/L Carbon Dioxide 26 (22-30) mmol/L BUN 8 (7-17) mg/dL Creatinine 0.9 (0.6-1.2) mg/dL Glucose 120 H (65-100) mg/dL Calcium 8.1 L (8.4-10.2) mg/dL Adrenal panel 12/07/21 Range/Units 06:06 Sodium 137 (137-145) mmol/L Potassium 3.7 (3.6-5.0) mmol/L Chloride 99.9 (98-107) mmol/L Carbon Dioxide 26 (22-30) mmol/L BUN 8 (7-17) mg/dL Creatinine 0.9 (0.6-1.2) mg/dL Glucose 120 H (65-100) mg/dL Calcium 8.1 L (8.4-10.2) mg/dL Total Bilirubin 0.40 (0.1-1.2) mg/dL AST 14 (5-40) units/L ALT 10 (7-56) units/L Alkaline Phosphatase 57 (35-129) units/L Total Protein 7.3 (6.3-8.2) g/dL Albumin 3.2 L (3.9-5) g/dL
[2021-12-07] MEDS ORDERED: oxyCODONE /ACETAMINOPHEN 5-325MG TAB PO PRN (11:00)
[2021-12-07] MEDS: KETOROLAC 30 MG/1 ML INJ IV SCH ×3 (13:03→22:03)
[2021-12-07] MEDS: D5W/0.45% NACL 1,000 ML IV SCH (14:44)
[2021-12-07] MEDS: ACETAMINOPHEN 325 MG TAB PO PRN (17:29)
[2021-12-08] MEDS: D5W/0.45% NACL 1,000 ML IV SCH ×2 (01:47→11:19)
[2021-12-08] MEDS: HYDROmorphone 1 MG/1 ML INJ IV PRN ×2 (01:47→11:17)
[2021-12-08] MEDS: PIPERACIL/TAZOBACTA 4.5/NS 100 4.5 GM/100 ML VIAL IV SCH ×3 (05:42→22:02)
[2021-12-08] MEDS: KETOROLAC 30 MG/1 ML INJ IV SCH ×4 (05:43→23:38)
[2021-12-08 05:44] LABS: Basophils % (Auto) 0.2 % (0.0-1.8); Eosinophils % (Auto) 0.3 % (0.0-4.3); Hematocrit 26.9 % (30.3-42.9); Hemoglobin 8.3 gm/dl (10.1-14.3); Lymphocytes # (Auto) 0.8 K/mm3 (1.2-5.4); Lymphocytes % (Auto) 10.9 % (13.4-35.0); Mean Corpuscular HGB Conc 31 % (30-34); Mean Corpuscular Volume 73 fl (79-97); Monocytes # (Auto) 0.4 K/mm3 (0.0-0.8); Monocytes % (Auto) 5.9 % (0.0-7.3); Platelet Count 292 K/mm3 (140-440); Red Blood Count 3.66 M/mm3 (3.65-5.03)
[2021-12-08 06:00] LABS: BUN/Creatinine Ratio 8; Blood Urea Nitrogen 7 mg/dL (7-17); Calcium 8.3 mg/dL (8.4-10.2); Hemolysis Index 3
[2021-12-08] MEDS ORDERED: POTASSIUM CHLORIDE ER 20 MEQ TAB PO ONE (06:27)
--- NOTE | 2021-12-08 07:23 | Progress Note ---
Assessment and Plan Assessment and plan: #Acute perforated appendicitis Heart rate as high as 115, WBC 11.5. Patient's RN reported T-max of 103. Visualized on CT abdomen/pelvis Continue Zosyn 4.5 g every 8 hours General surgery consulted; appreciate recs. Status post laparoscopic appendectomy with ileal resection and reanastomosis on 12/06/2021. Continue antiemetics and analgesics as needed. Encouraged patient to mobilize. #Hypokalemia Potassium 3.3 Repleted. Continue to monitor #Advanced care planning -Disease education conducted, care plan discussed, diagnoses discussed, prognosis discussed, and patient acknowledges understanding with care plan -Time: +30 min Disposition Plan: Continue medical management Total Time Spent with Patient (Minutes): 30 minutes History Interval history: Patient underwent laparoscopic appendectomy with resection and anastomosis of ileum. Patient tolerated procedure well. Hospitalist Physical - Constitutional Vitals: Temp Pulse Resp BP Pulse Ox 98.4 F 100 H 18 113/72 96 12/08/21 04:47 12/08/21 04:47 12/08/21 04:47 12/08/21 04:47 12/08/21 04:47 General appearance: Present: no acute distress, well-nourished - EENT Eyes: Present: PERRL, EOM intact ENT: hearing intact, clear oral mucosa, dentition normal - Neck Neck: Present: supple, normal ROM - Respiratory Respiratory effort: normal Respiratory: bilateral: CTA - Cardiovascular Rhythm: regular Heart Sounds: Present: S1 & S2 - Extremities Extremities: no ischemia, pulses intact, pulses symmetrical, No edema, normal temperature, normal color, Full ROM Peripheral Pulses: within normal limits - Abdominal General gastrointestinal: soft, tender (Appropriate tenderness at incision sites), non-distended, normal bowel sounds, other (JACKLYN drain in place with serosanguineous + purulent material) Localized gastrointestinal: tender: epigastric periumbilical - Integumentary Integumentary: Present: clear, warm, dry - Psychiatric Psychiatric: appropriate mood/affect, intact judgment & insight, memory intact, cooperative, agitated - Neurologic Neurologic: CNII-XII intact, moves all extremities - Allied Health Allied health notes reviewed: nursing Results - Labs CBC & Chem 7: 12/08/21 04:58 12/08/21 04:58 Labs: Laboratory Last Values WBC 7.0 K/mm3 (4.5-11.0) 12/08/21 04:58 RBC 3.66 M/mm3 (3.65-5.03) 12/08/21 04:58 Hgb 8.3 gm/dl (10.1-14.3) L 12/08/21 04:58 Hct 26.9 % (30.3-42.9) L 12/08/21 04:58 MCV 73 fl (79-97) L 12/08/21 04:58 MCH 23 pg (28-32) L 12/08/21 04:58 MCHC 31 % (30-34) 12/08/21 04:58 RDW 17.0 % (13.2-15.2) H 12/08/21 04:58 Plt Count 292 K/mm3 (140-440) 12/08/21 04:58 Lymph % (Auto) 10.9 % (13.4-35.0) L 12/08/21 04:58 [place] % (Auto) 5.9 % (0.0-7.3) 12/08/21 04:58 Eos % (Auto) 0.3 % (0.0-4.3) 12/08/21 04:58 Baso % (Auto) 0.2 % (0.0-1.8) 12/08/21 04:58 Lymph # (Auto) 0.8 K/mm3 (1.2-5.4) L 12/08/21 04:58 [place] # (Auto) 0.4 K/mm3 (0.0-0.8) 12/08/21 04:58 Eos # (Auto) 0.0 K/mm3 (0.0-0.4) 12/08/21 04:58 Baso # (Auto) 0.0 K/mm3 (0.0-0.1) 12/08/21 04:58 Add Manual Diff Complete 12/05/21 18:56 Total Counted 100 12/05/21 18:56 Seg Neutrophils % 82.7 % (40.0-70.0) H 12/08/21 04:58 Seg Neuts % (Manual) 88.0 % (40.0-70.0) H 12/05/21 18:56 Band Neutrophils % 0 % 12/05/21 18:56 Lymphocytes % (Manual) 5.0 % (13.4-35.0) L 12/05/21 18:56 Reactive Lymphs % (Man) 0 % 12/05/21 18:56 Monocytes % (Manual) 7.0 % (0.0-7.3) 12/05/21 18:56 Eosinophils % (Manual) 0 % (0.0-4.3) 12/05/21 18:56 Basophils % (Manual) 0 % (0.0-1.8) 12/05/21 18:56 Metamyelocytes % 0 % 12/05/21 18:56 Myelocytes % 0 % 12/05/21 18:56 Promyelocytes % 0 % 12/05/21 18:56 Blast Cells % 0 % 12/05/21 18:56 Nucleated RBC % Not Reportable 12/05/21 18:56 Seg Neutrophils # 5.8 K/mm3 (1.8-7.7) 12/08/21 04:58 Seg Neutrophils # Man 10.1 K/mm3 (1.8-7.7) H 12/05/21 18:56 Band Neutrophils # 0.0 K/mm3 12/05/21 18:56 Lymphocytes # (Manual) 0.6 K/mm3 (1.2-5.4) L 12/05/21 18:56 Abs React Lymphs (Man) 0.0 K/mm3 12/05/21 18:56 Monocytes # (Manual) 0.8 K/mm3 (0.0-0.8) 12/05/21 18:56 Eosinophils # (Manual) 0.0 K/mm3 (0.0-0.4) 12/05/21 18:56 Basophils # (Manual) 0.0 K/mm3 (0.0-0.1) 12/05/21 18:56 Metamyelocytes # 0.0 K/mm3 12/05/21 18:56 Myelocytes # 0.0 K/mm3 12/05/21 18:56 Promyelocytes # 0.0 K/mm3 12/05/21 18:56 Blast Cells # 0.0 K/mm3 12/05/21 18:56 WBC Morphology Not Reportable 12/05/21 18:56 Hypersegmented Neuts Not Reportable 12/05/21 18:56 Hyposegmented Neuts Not Reportable 12/05/21 18:56 Hypogranular Neuts Not Reportable 12/05/21 18:56 Smudge Cells Not Reportable 12/05/21 18:56 Toxic Granulation Not Reportable 12/05/21 18:56 Toxic Vacuolation Not Reportable 12/05/21 18:56 Dohle Bodies Not Reportable 12/05/21 18:56 Pelger-Huet Anomaly Not Reportable 12/05/21 18:56 Meron Rods Not Reportable 12/05/21 18:56 Platelet Estimate Not Reportable 12/05/21 18:56 Clumped Platelets Not Reportable 12/05/21 18:56 Plt Clumps, EDTA Not Reportable 12/05/21 18:56 Large Platelets Not Reportable 12/05/21 18:56 Giant Platelets Not Reportable 12/05/21 18:56 Platelet Satelliting Not Reportable 12/05/21 18:56 Plt Morphology Comment Not Reportable 12/05/21 18:56 RBC Morphology Not Reportable 12/05/21 18:56 Dimorphic RBCs Not Reportable 12/05/21 18:56 Polychromasia Not Reportable 12/05/21 18:56 Hypochromasia 1+ 12/05/21 18:56 Poikilocytosis Not Reportable 12/05/21 18:56 Anisocytosis Rare 12/05/21 18:56 Microcytosis Not Reportable 12/05/21 18:56 Macrocytosis Not Reportable 12/05/21 18:56 Spherocytes Not Reportable 12/05/21 18:56 Pappenheimer Bodies Not Reportable 12/05/21 18:56 Sickle Cells Not Reportable 12/05/21 18:56 Target Cells Not Reportable 12/05/21 18:56 Tear Drop Cells Not Reportable 12/05/21 18:56 Ovalocytes Not Reportable 12/05/21 18:56 Helmet Cells Not Reportable 12/05/21 18:56 [place] Bodies Not Reportable 12/05/21 18:56 [place] Rings Not Reportable 12/05/21 18:56 Alexander Cells Not Reportable 12/05/21 18:56 Bite Cells Not Reportable 12/05/21 18:56 Crenated Cell Not Reportable 12/05/21 18:56 Elliptocytes Not Reportable 12/05/21 18:56 Acanthocytes (Spur) Not Reportable 12/05/21 18:56 Rouleaux Not Reportable 12/05/21 18:56 Hemoglobin C Crystals Not Reportable 12/05/21 18:56 Schistocytes Not Reportable 12/05/21 18:56 Malaria parasites Not Reportable 12/05/21 18:56 Angel Bodies Not Reportable 12/05/21 18:56 Hem Pathologist Commnt No 12/05/21 18:56 Sodium 139 mmol/L (137-145) 12/08/21 04:58 Potassium 3.1 mmol/L (3.6-5.0) L 12/08/21 04:58 Chloride 102.6 mmol/L (98-107) 12/08/21 04:58 Carbon Dioxide 27 mmol/L (22-30) 12/08/21 04:58 Anion Gap 13 mmol/L 12/08/21 04:58 BUN 7 mg/dL (7-17) 12/08/21 04:58 Creatinine 0.9 mg/dL (0.6-1.2) 12/08/21 04:58 Estimated GFR > 60 ml/min 12/08/21 04:58 BUN/Creatinine Ratio 8 % 12/08/21 04:58 Glucose 111 mg/dL (65-100) H 12/08/21 04:58 Lactic Acid 1.70 mmol/L (0.7-2.0) 12/05/21 21:21 Calcium 8.3 mg/dL (8.4-10.2) L 12/08/21 04:58 Total Bilirubin 0.40 mg/dL (0.1-1.2) 12/07/21 06:06 Direct Bilirubin < 0.2 mg/dL (0-0.2) 12/05/21 18:56 Indirect Bilirubin 0.3 mg/dL 12/05/21 18:56 AST 14 units/L (5-40) 12/07/21 06:06 ALT 10 units/L (7-56) 12/07/21 06:06 Alkaline Phosphatase 57 units/L (35-129) 12/07/21 06:06 Total Protein 7.3 g/dL (6.3-8.2) 12/07/21 06:06 Albumin 3.2 g/dL (3.9-5) L 12/07/21 06:06 Albumin/Globulin Ratio 0.8 % 12/07/21 06:06 Lipase 8 units/L (13-60) L 12/05/21 18:56 HCG, Qual Negative (Negative) 12/05/21 18:56 Urine Color Yellow (Yellow) 12/05/21 Unknown Urine Turbidity Turbid (Clear) 12/05/21 Unknown Urine pH 5.0 (5.0-7.0) 12/05/21 Unknown Ur Specific [place] 1.026 (1.003-1.030) 12/05/21 Unknown Urine Protein 30 mg/dl mg/dL (Negative) 12/05/21 Unknown Urine Glucose (UA) Neg mg/dL (Negative) 12/05/21 Unknown Urine Ketones 20 mg/dL (Negative) 12/05/21 Unknown Urine Blood Neg (Negative) 12/05/21 Unknown Urine Nitrite Neg (Negative) 12/05/21 Unknown Ur Reducing Substances Not Reportable 12/05/21 Unknown Urine Bilirubin Neg (Negative) 12/05/21 Unknown Urine Ictotest Not Reportable 12/05/21 Unknown Urine Urobilinogen < 2.0 mg/dL (<2.0) 12/05/21 Unknown Ur Leukocyte Esterase Neg (Negative) 12/05/21 Unknown Urine WBC (Auto) 57.0 /HPF (0.0-6.0) H 12/05/21 Unknown Urine RBC (Auto) 10.0 /HPF (0.0-6.0) 12/05/21 Unknown U Epithel Cells (Auto) 8.0 /HPF (0-13.0) 12/05/21 Unknown Urine Bacteria (Auto) 1+ /HPF (Negative) 12/05/21 Unknown Urine Mucus 3+ /HPF 12/05/21 Unknown Urine Yeast (Budding) 3+ /HPF 12/05/21 Unknown Blood Type O POSITIVE 12/06/21 09:25 Antibody Screen Negative 12/06/21 09:25 Microbiology: Microbiology 12/05/21 21:21 Peripheral/Venous Blood Culture - Preliminary NO GROWTH AFTER 48 HOURS 12/05/21 21:21 Peripheral/Venous Blood Culture - Preliminary NO GROWTH AFTER 48 HOURS 12/05/21 Unknown Urine,Clean Catch Urine Culture - Preliminary Cortez/IV: Voiding Method Toilet Active Medications - Current Medications Current Medications: Generic Name Dose Route Start Last Admin Trade Name Freq PRN Reason Stop Dose Admin Acetaminophen 650 mg 12/05/21 21:41 12/07/21 17:29 Acetaminophen 325 Mg Tab PO 650 mg Q4H PRN Administration Pain MILD(1-3)/Fever >100.5/VELASQUEZ Albuterol 2.5 mg 12/05/21 21:41 Albuterol 2.5 Mg/3 Ml Nebu IH Q3HRT PRN Shortness Of Breath Famotidine 20 mg 12/05/21 22:00 12/07/21 21:48 Famotidine 20 Mg/2 Ml Inj IV 20 mg BID VITO Administration Hydromorphone HCl 0.5 mg 12/05/21 21:41 12/08/21 01:47 Hydromorphone 1 Mg/1 Ml Inj IV 0.5 mg Q3H PRN Administration Pain , Severe (7-10) Dextrose/Sodium Chloride 1,000 mls @ 100 mls/hr 12/05/21 22:00 12/08/21 01:47 D5/0.45ns IV 100 mls/hr DIRECT VITO Administration Piperacillin Sod/Tazobactam Sod 4.5 gm in 100 mls @ 200 mls/hr 12/06/21 06:00 12/08/21 05:42 Zosyn/Ns 4.5gm/100ml IV 200 mls/hr Q8H VITO Administration Protocol Potassium Chloride 10 meq in 100 mls @ 100 mls/hr 12/08/21 07:00 Kcl 10meq/100ml IV 12/08/21 10:59 Q1H VITO Ketorolac Tromethamine 30 mg 12/07/21 11:00 12/08/21 05:43 Ketorolac 30 Mg/1 Ml Inj IV 12/12/21 10:59 30 mg Q6H VITO Administration Ondansetron HCl 4 mg 12/05/21 21:41 12/06/21 17:31 Ondansetron 4 Mg/2 Ml Inj IV 4 mg Q8H PRN Administration Nausea And Vomiting Oxycodone/Acetaminophen 1 tab 12/07/21 11:00 Oxycodone /Acetaminophen 5-325mg Tab PO Q4H PRN Pain, Moderate (4-6) Sodium Chloride 10 ml 12/05/21 22:00 12/07/21 21:51 Sodium Chloride 0.9% 10 Ml Flush Syringe IV 10 ml BID VITO Administration Sodium Chloride 10 ml 12/05/21 21:41 Sodium Chloride 0.9% 10 Ml Flush Syringe IV PRN PRN LINE FLUSH Nutrition/Malnutrition Assess - Dietary Evaluation Nutrition/Malnutrition Findings: Nutrition Notes Start: 12/06/21 15:24 Freq: Status: Active Protocol: Document 12/06/21 15:24 VANDANA (Rec: 12/06/21 15:44 VANDANA [id number]) Nutrition Notes Need for Assessment generated from: geology instructor Initial or Follow up Assessment Other Pertinent Diagnosis s/p Appendectomy w/ ileocecectomy, Hypokalemia. Current Diet Clear Liquids Diet (since D ). Labs/Tests 12/06: Na 134, K 3.3, BUN 6, Glu 130, Ca 8.0. Pertinent Medications 12/06: D5/0.45ns 1000ml @ 100 ml/hr, others nutritionally unremarkable. 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 Weight Status Overweight Subjective/Other Information RD consult for skin risk assessment. Pt currently on NPO, after procedure diet will advance to CLD. Procedure 12/06: Laparoscopic hand-assisted lysis of adhesions, ileocecectomy. Well tolerated, according to Progress notes. Percent of energy/protein needs met: Prescribed Clear Liquids Diet provides for energy/protein needs (590 Kcal/16 g) during LOS Burn Absent Trauma Absent GI Symptoms Nausea,Vomiting,Other Food Allergy No Skin Integrity/Comment Surgical wound. Current % PO Other Minimum of two criteria No #1 Nutrition Diagnosis Predicted suboptimal energy intake Etiology Surgical procedure As Evidenced by Signs and Symptoms Procedure 12/06: Laparoscopic hand-assisted lysis of adhesions, ileocecectomy. Well tolerated, according to Progress notes. Is patient on ventilator? No Is Patient Ambulatory and/or Out of Bed Yes REE-([place] or-ambulatory/OOB) [ 2003.977 NUTR.[id number]] Kcal/Kg value to use for calculation 23 Approximate Energy Requirements Using 1826 kcal/Kg Calculation Used for Recommendations Kcal/kg Additional Notes Protein: 1.5-2 g/Kg ABW; 119- 158 g/day. Fluids: 1 ml/Kcal, or as per MD. Nutrition Intervention Change Diet Order: Continue Clear Liquids Diet as tolerated. Goal #1 Maintain body weight within +/ -3% of admission body weight during LOS. Follow-Up By: 12/10/21 Additional Comments Continue monitoring food tolerance, %PO intake of meals , and BM.
--- NOTE | 2021-12-08 07:24 | Progress Note ---
Assessment and Plan Assessment and plan: #Acute perforated appendicitis Heart rate as high as 115, WBC 11.5. Patient's RN reported T-max of 103. Visualized on CT abdomen/pelvis Continue Zosyn 4.5 g every 8 hours General surgery consulted; appreciate recs. Status post laparoscopic appendectomy with ileal resection and reanastomosis on 12/06/2021. Continue antiemetics and analgesics as needed. Encouraged patient to mobilize. #Hypokalemia Potassium 3.3 Repleted. Continue to monitor #Obesity #Weight loss counseling #Exercise counseling - BMI 36.5 - Counseled patient on the importance of weight loss, incorporating exercise, and dietary changes (lean meats, fresh fruits and vegetables, and water intake). Patient expresses understanding. - Time: +15 min #Advanced care planning -Disease education conducted, care plan discussed, diagnoses discussed, prognosis discussed, and patient acknowledges understanding with care plan -Time: +30 min Disposition Plan: Continue medical management Total Time Spent with Patient (Minutes): 30 minutes History Interval history: No acute events overnight. Hospitalist Physical - Constitutional Vitals: Temp Pulse Resp BP Pulse Ox 98.4 F 100 H 18 113/72 96 12/08/21 04:47 12/08/21 04:47 12/08/21 04:47 12/08/21 04:47 12/08/21 04:47 General appearance: Present: no acute distress, well-nourished, obese - EENT Eyes: Present: PERRL, EOM intact ENT: hearing intact, clear oral mucosa, dentition normal - Neck Neck: Present: supple, normal ROM - Respiratory Respiratory effort: normal Respiratory: bilateral: CTA - Cardiovascular Rhythm: regular Heart Sounds: Present: S1 & S2 - Extremities Extremities: no ischemia, pulses intact, pulses symmetrical, No edema, normal temperature, normal color, Full ROM Peripheral Pulses: within normal limits - Abdominal General gastrointestinal: soft, tender (Appropriate tenderness at incision sites), non-distended, normal bowel sounds, other (JACKLYN drain in place with serosanguineous fluid) Localized gastrointestinal: tender: epigastric periumbilical - Integumentary Integumentary: Present: clear, warm, dry - Psychiatric Psychiatric: appropriate mood/affect, intact judgment & insight, memory intact, cooperative - Neurologic Neurologic: CNII-XII intact, moves all extremities - Allied Health Allied health notes reviewed: nursing Results - Labs CBC & Chem 7: 12/08/21 04:58 12/08/21 04:58 Labs: Laboratory Last Values WBC 7.0 K/mm3 (4.5-11.0) 12/08/21 04:58 RBC 3.66 M/mm3 (3.65-5.03) 12/08/21 04:58 Hgb 8.3 gm/dl (10.1-14.3) L 12/08/21 04:58 Hct 26.9 % (30.3-42.9) L 12/08/21 04:58 MCV 73 fl (79-97) L 12/08/21 04:58 MCH 23 pg (28-32) L 12/08/21 04:58 MCHC 31 % (30-34) 12/08/21 04:58 RDW 17.0 % (13.2-15.2) H 12/08/21 04:58 Plt Count 292 K/mm3 (140-440) 12/08/21 04:58 Lymph % (Auto) 10.9 % (13.4-35.0) L 12/08/21 04:58 [place] % (Auto) 5.9 % (0.0-7.3) 12/08/21 04:58 Eos % (Auto) 0.3 % (0.0-4.3) 12/08/21 04:58 Baso % (Auto) 0.2 % (0.0-1.8) 12/08/21 04:58 Lymph # (Auto) 0.8 K/mm3 (1.2-5.4) L 12/08/21 04:58 [place] # (Auto) 0.4 K/mm3 (0.0-0.8) 12/08/21 04:58 Eos # (Auto) 0.0 K/mm3 (0.0-0.4) 12/08/21 04:58 Baso # (Auto) 0.0 K/mm3 (0.0-0.1) 12/08/21 04:58 Add Manual Diff Complete 12/05/21 18:56 Total Counted 100 12/05/21 18:56 Seg Neutrophils % 82.7 % (40.0-70.0) H 12/08/21 04:58 Seg Neuts % (Manual) 88.0 % (40.0-70.0) H 12/05/21 18:56 Band Neutrophils % 0 % 12/05/21 18:56 Lymphocytes % (Manual) 5.0 % (13.4-35.0) L 12/05/21 18:56 Reactive Lymphs % (Man) 0 % 12/05/21 18:56 Monocytes % (Manual) 7.0 % (0.0-7.3) 12/05/21 18:56 Eosinophils % (Manual) 0 % (0.0-4.3) 12/05/21 18:56 Basophils % (Manual) 0 % (0.0-1.8) 12/05/21 18:56 Metamyelocytes % 0 % 12/05/21 18:56 Myelocytes % 0 % 12/05/21 18:56 Promyelocytes % 0 % 12/05/21 18:56 Blast Cells % 0 % 12/05/21 18:56 Nucleated RBC % Not Reportable 12/05/21 18:56 Seg Neutrophils # 5.8 K/mm3 (1.8-7.7) 12/08/21 04:58 Seg Neutrophils # Man 10.1 K/mm3 (1.8-7.7) H 12/05/21 18:56 Band Neutrophils # 0.0 K/mm3 12/05/21 18:56 Lymphocytes # (Manual) 0.6 K/mm3 (1.2-5.4) L 12/05/21 18:56 Abs React Lymphs (Man) 0.0 K/mm3 12/05/21 18:56 Monocytes # (Manual) 0.8 K/mm3 (0.0-0.8) 12/05/21 18:56 Eosinophils # (Manual) 0.0 K/mm3 (0.0-0.4) 12/05/21 18:56 Basophils # (Manual) 0.0 K/mm3 (0.0-0.1) 12/05/21 18:56 Metamyelocytes # 0.0 K/mm3 12/05/21 18:56 Myelocytes # 0.0 K/mm3 12/05/21 18:56 Promyelocytes # 0.0 K/mm3 12/05/21 18:56 Blast Cells # 0.0 K/mm3 12/05/21 18:56 WBC Morphology Not Reportable 12/05/21 18:56 Hypersegmented Neuts Not Reportable 12/05/21 18:56 Hyposegmented Neuts Not Reportable 12/05/21 18:56 Hypogranular Neuts Not Reportable 12/05/21 18:56 Smudge Cells Not Reportable 12/05/21 18:56 Toxic Granulation Not Reportable 12/05/21 18:56 Toxic Vacuolation Not Reportable 12/05/21 18:56 Dohle Bodies Not Reportable 12/05/21 18:56 Pelger-Huet Anomaly Not Reportable 12/05/21 18:56 Meron Rods Not Reportable 12/05/21 18:56 Platelet Estimate Not Reportable 12/05/21 18:56 Clumped Platelets Not Reportable 12/05/21 18:56 Plt Clumps, EDTA Not Reportable 12/05/21 18:56 Large Platelets Not Reportable 12/05/21 18:56 Giant Platelets Not Reportable 12/05/21 18:56 Platelet Satelliting Not Reportable 12/05/21 18:56 Plt Morphology Comment Not Reportable 12/05/21 18:56 RBC Morphology Not Reportable 12/05/21 18:56 Dimorphic RBCs Not Reportable 12/05/21 18:56 Polychromasia Not Reportable 12/05/21 18:56 Hypochromasia 1+ 12/05/21 18:56 Poikilocytosis Not Reportable 12/05/21 18:56 Anisocytosis Rare 12/05/21 18:56 Microcytosis Not Reportable 12/05/21 18:56 Macrocytosis Not Reportable 12/05/21 18:56 Spherocytes Not Reportable 12/05/21 18:56 Pappenheimer Bodies Not Reportable 12/05/21 18:56 Sickle Cells Not Reportable 12/05/21 18:56 Target Cells Not Reportable 12/05/21 18:56 Tear Drop Cells Not Reportable 12/05/21 18:56 Ovalocytes Not Reportable 12/05/21 18:56 Helmet Cells Not Reportable 12/05/21 18:56 [place] Bodies Not Reportable 12/05/21 18:56 [place] Rings Not Reportable 12/05/21 18:56 [place] Cells Not Reportable 12/05/21 18:56 Bite Cells Not Reportable 12/05/21 18:56 Crenated Cell Not Reportable 12/05/21 18:56 Elliptocytes Not Reportable 12/05/21 18:56 Acanthocytes (Spur) Not Reportable 12/05/21 18:56 Rouleaux Not Reportable 12/05/21 18:56 Hemoglobin C Crystals Not Reportable 12/05/21 18:56 Schistocytes Not Reportable 12/05/21 18:56 Malaria parasites Not Reportable 12/05/21 18:56 Angel Bodies Not Reportable 12/05/21 18:56 Hem Pathologist Commnt No 12/05/21 18:56 Sodium 139 mmol/L (137-145) 12/08/21 04:58 Potassium 3.1 mmol/L (3.6-5.0) L 12/08/21 04:58 Chloride 102.6 mmol/L (98-107) 12/08/21 04:58 Carbon Dioxide 27 mmol/L (22-30) 12/08/21 04:58 Anion Gap 13 mmol/L 12/08/21 04:58 BUN 7 mg/dL (7-17) 12/08/21 04:58 Creatinine 0.9 mg/dL (0.6-1.2) 12/08/21 04:58 Estimated GFR > 60 ml/min 12/08/21 04:58 BUN/Creatinine Ratio 8 % 12/08/21 04:58 Glucose 111 mg/dL (65-100) H 12/08/21 04:58 Lactic Acid 1.70 mmol/L (0.7-2.0) 12/05/21 21:21 Calcium 8.3 mg/dL (8.4-10.2) L 12/08/21 04:58 Total Bilirubin 0.40 mg/dL (0.1-1.2) 12/07/21 06:06 Direct Bilirubin < 0.2 mg/dL (0-0.2) 12/05/21 18:56 Indirect Bilirubin 0.3 mg/dL 12/05/21 18:56 AST 14 units/L (5-40) 12/07/21 06:06 ALT 10 units/L (7-56) 12/07/21 06:06 Alkaline Phosphatase 57 units/L (35-129) 12/07/21 06:06 Total Protein 7.3 g/dL (6.3-8.2) 12/07/21 06:06 Albumin 3.2 g/dL (3.9-5) L 12/07/21 06:06 Albumin/Globulin Ratio 0.8 % 12/07/21 06:06 Lipase 8 units/L (13-60) L 12/05/21 18:56 HCG, Qual Negative (Negative) 12/05/21 18:56 Urine Color Yellow (Yellow) 12/05/21 Unknown Urine Turbidity Turbid (Clear) 12/05/21 Unknown Urine pH 5.0 (5.0-7.0) 12/05/21 Unknown Ur Specific [place] 1.026 (1.003-1.030) 12/05/21 Unknown Urine Protein 30 mg/dl mg/dL (Negative) 12/05/21 Unknown Urine Glucose (UA) Neg mg/dL (Negative) 12/05/21 Unknown Urine Ketones 20 mg/dL (Negative) 12/05/21 Unknown Urine Blood Neg (Negative) 12/05/21 Unknown Urine Nitrite Neg (Negative) 12/05/21 Unknown Ur Reducing Substances Not Reportable 12/05/21 Unknown Urine Bilirubin Neg (Negative) 12/05/21 Unknown Urine Ictotest Not Reportable 12/05/21 Unknown Urine Urobilinogen < 2.0 mg/dL (<2.0) 12/05/21 Unknown Ur Leukocyte Esterase Neg (Negative) 12/05/21 Unknown Urine WBC (Auto) 57.0 /HPF (0.0-6.0) H 12/05/21 Unknown Urine RBC (Auto) 10.0 /HPF (0.0-6.0) 12/05/21 Unknown U Epithel Cells (Auto) 8.0 /HPF (0-13.0) 12/05/21 Unknown Urine Bacteria (Auto) 1+ /HPF (Negative) 12/05/21 Unknown Urine Mucus 3+ /HPF 12/05/21 Unknown Urine Yeast (Budding) 3+ /HPF 12/05/21 Unknown Blood Type O POSITIVE 12/06/21 09:25 Antibody Screen Negative 12/06/21 09:25 Microbiology: Microbiology 12/05/21 21:21 Peripheral/Venous Blood Culture - Preliminary NO GROWTH AFTER 48 HOURS 12/05/21 21:21 Peripheral/Venous Blood Culture - Preliminary NO GROWTH AFTER 48 HOURS 12/05/21 Unknown Urine,Clean Catch Urine Culture - Preliminary [place]/IV: Voiding Method Toilet Active Medications - Current Medications Current Medications: Generic Name Dose Route Start Last Admin Trade Name Freq PRN Reason Stop Dose Admin Acetaminophen 650 mg 12/05/21 21:41 12/07/21 17:29 Acetaminophen 325 Mg Tab PO 650 mg Q4H PRN Administration Pain MILD(1-3)/Fever >100.5/VELASQUEZ Albuterol 2.5 mg 12/05/21 21:41 Albuterol 2.5 Mg/3 Ml Nebu IH Q3HRT PRN Shortness Of Breath Famotidine 20 mg 12/05/21 22:00 12/07/21 21:48 Famotidine 20 Mg/2 Ml Inj IV 20 mg BID VITO Administration Hydromorphone HCl 0.5 mg 12/05/21 21:41 12/08/21 01:47 Hydromorphone 1 Mg/1 Ml Inj IV 0.5 mg Q3H PRN Administration Pain , Severe (7-10) Dextrose/Sodium Chloride 1,000 mls @ 100 mls/hr 12/05/21 22:00 12/08/21 01:47 D5/0.45ns IV 100 mls/hr DIRECT VITO Administration Piperacillin Sod/Tazobactam Sod 4.5 gm in 100 mls @ 200 mls/hr 12/06/21 06:00 12/08/21 05:42 Zosyn/Ns 4.5gm/100ml IV 200 mls/hr Q8H VITO Administration Protocol Potassium Chloride 10 meq in 100 mls @ 100 mls/hr 12/08/21 07:00 Kcl 10meq/100ml IV 12/08/21 10:59 Q1H VITO Ketorolac Tromethamine 30 mg 12/07/21 11:00 12/08/21 05:43 Ketorolac 30 Mg/1 Ml Inj IV 12/12/21 10:59 30 mg Q6H VITO Administration Ondansetron HCl 4 mg 12/05/21 21:41 12/06/21 17:31 Ondansetron 4 Mg/2 Ml Inj IV 4 mg Q8H PRN Administration Nausea And Vomiting Oxycodone/Acetaminophen 1 tab 12/07/21 11:00 Oxycodone /Acetaminophen 5-325mg Tab PO Q4H PRN Pain, Moderate (4-6) Sodium Chloride 10 ml 12/05/21 22:00 12/07/21 21:51 Sodium Chloride 0.9% 10 Ml Flush Syringe IV 10 ml BID VITO Administration Sodium Chloride 10 ml 12/05/21 21:41 Sodium Chloride 0.9% 10 Ml Flush Syringe IV PRN PRN LINE FLUSH Nutrition/Malnutrition Assess - Dietary Evaluation Nutrition/Malnutrition Findings: Nutrition Notes Start: 12/06/21 15:24 Freq: Status: Active Protocol: Document 12/06/21 15:24 VANDANA (Rec: 12/06/21 15:44 VANDANA [id number]) Nutrition Notes Need for Assessment generated from: colorist Initial or Follow up Assessment Other Pertinent Diagnosis s/p Appendectomy w/ ileocecectomy, Hypokalemia. Current Diet Clear Liquids Diet (since D ). Labs/Tests 12/06: Na 134, K 3.3, BUN 6, Glu 130, Ca 8.0. Pertinent Medications 12/06: D5/0.45ns 1000ml @ 100 ml/hr, others nutritionally unremarkable. 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 Weight Status Overweight Subjective/Other Information RD consult for skin risk assessment. Pt currently on NPO, after procedure diet will advance to [facility]D. Procedure 12/06: Laparoscopic hand-assisted lysis of adhesions, ileocecectomy. Well tolerated, according to Progress notes. Percent of energy/protein needs met: Prescribed Clear Liquids Diet provides for energy/protein needs (590 Kcal/16 g) during LOS Burn Absent Trauma Absent GI Symptoms Nausea,Vomiting,Other Food Allergy No Skin Integrity/Comment Surgical wound. Current % PO Other Minimum of two criteria No #1 Nutrition Diagnosis Predicted suboptimal energy intake Etiology Surgical procedure As Evidenced by Signs and Symptoms Procedure 12/06: Laparoscopic hand-assisted lysis of adhesions, ileocecectomy. Well tolerated, according to Progress notes. Is patient on ventilator? No Is Patient Ambulatory and/or Out of Bed Yes REE-([place]-St. Jeor-ambulatory/OOB) [ 2003.977 [id number]] Kcal/Kg value to use for calculation 23 Approximate Energy Requirements Using 1826 kcal/Kg Calculation Used for Recommendations Kcal/kg Additional Notes Protein: 1.5-2 g/Kg ABW; 119- 158 g/day. Fluids: 1 ml/Kcal, or as per MD. Nutrition Intervention Change Diet Order: Continue Clear Liquids Diet as tolerated. Goal #1 Maintain body weight within +/ -3% of admission body weight during LOS. Follow-Up By: 12/10/21 Additional Comments Continue monitoring food tolerance, %PO intake of meals , and BM.
[2021-12-08] MEDS: POTASSIUM CHLORIDE 10 MEQ 10 MEQ/100 ML BAG IV SCH ×3 (09:51→12:28)
[2021-12-08] MEDS: FAMOTIDINE 20 MG/2 ML INJ IV SCH ×2 (09:52→22:02)
--- NOTE | 2021-12-08 13:19 | Progress Note ---
Assessment and Plan 36 yo F s/p laparoscopic hand assisted lysis of adhesions, ileocecectomy, POD 1 for perforated appendicitis with abscess JACKLYN output 180cc/24hr Plan: 1. adv to FLD 2. decrease and wean IVF 3. IV abx - zosyn 4. prn pain and nausea control 5. OOB/ambulate 6. IS/pulm toilet 7. ice to incisions 8. monitor JACKLYN drain output 9. follow up blcx and ucx Dc planning in 48 hr if continues to show clinical improvement. Thank you, please call with questions. Subjective Date of service: 12/08/21 Narrative: Pt seen and examined. Sleeping comfortably. Tm 100.3. No n/v. Riki clear liquids. Has been OOB. Objective Vital Signs - 12hr 12/08/21 04:47 Temperature 98.4 F Pulse Rate 100 H Respiratory 18 Rate Blood Pressure 113/72 O2 Sat by Pulse 96 Oximetry - General physical appearance Narrative Exam: Gen.: Sleeping comfortably. No apparent distress ENT: Trachea midline. No lymphadenopathy. No scleral icterus or conjunctival pallor CV: S1, S2 present Respiratory: No audible wheezes Abdomen: Soft, nondistended, nontender. Incisions c/d/i. JACKLYN drain serosang. Dressing c/d/i. No rebound, rigidity, guarding Extremities: No clubbing, cyanosis, edema - Labs 12/08/21 04:58 12/08/21 04:58 Diabetes panel 12/08/21 Range/Units 04:58 Sodium 139 (137-145) mmol/L Potassium 3.1 L (3.6-5.0) mmol/L Chloride 102.6 (98-107) mmol/L Carbon Dioxide 27 (22-30) mmol/L BUN 7 (7-17) mg/dL Creatinine 0.9 (0.6-1.2) mg/dL Glucose 111 H (65-100) mg/dL Calcium 8.3 L (8.4-10.2) mg/dL Calcium panel 12/08/21 Range/Units 04:58 Calcium 8.3 L (8.4-10.2) mg/dL Pituitary panel 12/08/21 Range/Units 04:58 Sodium 139 (137-145) mmol/L Potassium 3.1 L (3.6-5.0) mmol/L Chloride 102.6 (98-107) mmol/L Carbon Dioxide 27 (22-30) mmol/L BUN 7 (7-17) mg/dL Creatinine 0.9 (0.6-1.2) mg/dL Glucose 111 H (65-100) mg/dL Calcium 8.3 L (8.4-10.2) mg/dL Adrenal panel 12/08/21 Range/Units 04:58 Sodium 139 (137-145) mmol/L Potassium 3.1 L (3.6-5.0) mmol/L Chloride 102.6 (98-107) mmol/L Carbon Dioxide 27 (22-30) mmol/L BUN 7 (7-17) mg/dL Creatinine 0.9 (0.6-1.2) mg/dL Glucose 111 H (65-100) mg/dL Calcium 8.3 L (8.4-10.2) mg/dL
[2021-12-08] MEDS: D5NS W/KCL 20 MEQ 20 MEQ/1,000 ML BAG IV SCH (14:37)
[2021-12-08] MEDS: ONDANSETRON 4 MG/2 ML INJ IV PRN (23:38)
[2021-12-09] MEDS: KETOROLAC 30 MG/1 ML INJ IV SCH ×4 (04:45→23:03)
[2021-12-09] MEDS: D5NS W/KCL 20 MEQ 20 MEQ/1,000 ML BAG IV SCH (04:49)
[2021-12-09 06:08] LABS: Basophils % (Auto) 0.4 % (0.0-1.8); Eosinophils # (Auto) 0.1 K/mm3 (0.0-0.4); Eosinophils % (Auto) 1.3 % (0.0-4.3); Hematocrit 28.6 % (30.3-42.9); Hemoglobin 8.9 gm/dl (10.1-14.3); Lymphocytes # (Auto) 0.7 K/mm3 (1.2-5.4); Mean Corpuscular HGB Conc 31 % (30-34); Mean Corpuscular Volume 74 fl (79-97); Monocytes # (Auto) 0.7 K/mm3 (0.0-0.8); Platelet Count 345 K/mm3 (140-440); Red Blood Count 3.89 M/mm3 (3.65-5.03); Red Cell Distribution Width 17.1 % (13.2-15.2)
[2021-12-09] MEDS: PIPERACIL/TAZOBACTA 4.5/NS 100 4.5 GM/100 ML VIAL IV SCH ×3 (06:09→21:22)
[2021-12-09 06:28] LABS: BUN/Creatinine Ratio 8; Blood Urea Nitrogen 6 mg/dL (7-17); Hemolysis Index 0
[2021-12-09] MEDS: ONDANSETRON 4 MG/2 ML INJ IV PRN (09:26)
[2021-12-09] MEDS: FAMOTIDINE 20 MG/2 ML INJ IV SCH ×2 (09:26→21:24)
--- NOTE | 2021-12-09 09:59 | Progress Note ---
Assessment and Plan Assessment and plan: #Acute perforated appendicitis Heart rate as high as 115, WBC 11.5. Patient's RN reported T-max of 103. Visualized on CT abdomen/pelvis Continue Zosyn 4.5 g every 8 hours General surgery consulted; appreciate recs. Status post laparoscopic appendectomy with ileal resection and reanastomosis on 12/06/2021. Continue antiemetics and analgesics as needed. Encouraged patient to mobilize. Advancing from full liquid diet to GI soft diet #Hypokalemiaresolved Potassium 3.3 Repleted. Continue to monitor #Obesity #Weight loss counseling #Exercise counseling - BMI 36.5 - Counseled patient on the importance of weight loss, incorporating exercise, and dietary changes (lean meats, fresh fruits and vegetables, and water intake). Patient expresses understanding. - Time: +15 min #Advanced care planning -Disease education conducted, care plan discussed, diagnoses discussed, prognosis discussed, and patient acknowledges understanding with care plan -Time: +30 min #Discharge planning - Patient is pending ability to tolerate solid food and removal of JACKLYN drain - Case management has been made aware. - Discharge is tentatively tomorrow Disposition Plan: Pending possible discharge home tomorrow Total Time Spent with Patient (Minutes): 30 minutes History Interval history: No acute events overnight. Hospitalist Physical - Constitutional Vitals: Temp Pulse Resp BP Pulse Ox 98.5 F 109 H 20 114/77 98 12/09/21 05:19 12/09/21 05:19 12/09/21 05:19 12/09/21 05:19 12/09/21 05:19 General appearance: Present: no acute distress, well-nourished, obese - EENT Eyes: Present: PERRL, EOM intact ENT: hearing intact, clear oral mucosa, dentition normal - Neck Neck: Present: supple, normal ROM - Respiratory Respiratory effort: normal - Cardiovascular Rhythm: regular Heart Sounds: Present: S1 & S2 - Extremities Extremities: no ischemia, pulses intact, pulses symmetrical, No edema, normal temperature, normal color, Full ROM Peripheral Pulses: within normal limits - Abdominal General gastrointestinal: soft, tender (Appropriate tenderness at incision sites), non-distended, normal bowel sounds, other (JACKLYN drain with serosanguineous fluid) Localized gastrointestinal: tender: RLQ, epigastric periumbilical - Integumentary Integumentary: Present: clear, warm, dry - Psychiatric Psychiatric: appropriate mood/affect, intact judgment & insight, memory intact, cooperative - Neurologic Neurologic: CNII-XII intact, moves all extremities - Allied Health Allied health notes reviewed: nursing Results - Labs CBC & Chem 7: 12/09/21 05:21 12/09/21 05:21 Labs: Laboratory Last Values WBC 8.3 K/mm3 (4.5-11.0) 12/09/21 05:21 RBC 3.89 M/mm3 (3.65-5.03) 12/09/21 05:21 Hgb 8.9 gm/dl (10.1-14.3) L 12/09/21 05:21 Hct 28.6 % (30.3-42.9) L 12/09/21 05:21 MCV 74 fl (79-97) L 12/09/21 05:21 MCH 23 pg (28-32) L 12/09/21 05:21 MCHC 31 % (30-34) 12/09/21 05:21 RDW 17.1 % (13.2-15.2) H 12/09/21 05:21 Plt Count 345 K/mm3 (140-440) 12/09/21 05:21 Lymph % (Auto) 9.0 % (13.4-35.0) L 12/09/21 05:21 [place] % (Auto) 8.0 % (0.0-7.3) H 12/09/21 05:21 Eos % (Auto) 1.3 % (0.0-4.3) 12/09/21 05:21 Baso % (Auto) 0.4 % (0.0-1.8) 12/09/21 05:21 Lymph # (Auto) 0.7 K/mm3 (1.2-5.4) L 12/09/21 05:21 [place] # (Auto) 0.7 K/mm3 (0.0-0.8) 12/09/21 05:21 Eos # (Auto) 0.1 K/mm3 (0.0-0.4) 12/09/21 05:21 Baso # (Auto) 0.0 K/mm3 (0.0-0.1) 12/09/21 05:21 Add Manual Diff Complete 12/05/21 18:56 Total Counted 100 03/09/22 18:56 Seg Neutrophils % 81.3 % (40.0-70.0) H 12/09/21 05:21 Seg Neuts % (Manual) 88.0 % (40.0-70.0) H 12/05/21 18:56 Band Neutrophils % 0 % 12/05/21 18:56 Lymphocytes % (Manual) 5.0 % (13.4-35.0) L 12/05/21 18:56 Reactive Lymphs % (Man) 0 % 12/05/21 18:56 Monocytes % (Manual) 7.0 % (0.0-7.3) 12/05/21 18:56 Eosinophils % (Manual) 0 % (0.0-4.3) 12/05/21 18:56 Basophils % (Manual) 0 % (0.0-1.8) 12/05/21 18:56 Metamyelocytes % 0 % 12/05/21 18:56 Myelocytes % 0 % 12/05/21 18:56 Promyelocytes % 0 % 12/05/21 18:56 Blast Cells % 0 % 12/05/21 18:56 Nucleated RBC % Not Reportable 12/05/21 18:56 Seg Neutrophils # 6.8 K/mm3 (1.8-7.7) 12/09/21 05:21 Seg Neutrophils # Man 10.1 K/mm3 (1.8-7.7) H 12/05/21 18:56 Band Neutrophils # 0.0 K/mm3 12/05/21 18:56 Lymphocytes # (Manual) 0.6 K/mm3 (1.2-5.4) L 12/05/21 18:56 Abs React Lymphs (Man) 0.0 K/mm3 12/05/21 18:56 Monocytes # (Manual) 0.8 K/mm3 (0.0-0.8) 12/05/21 18:56 Eosinophils # (Manual) 0.0 K/mm3 (0.0-0.4) 12/05/21 18:56 Basophils # (Manual) 0.0 K/mm3 (0.0-0.1) 12/05/21 18:56 Metamyelocytes # 0.0 K/mm3 12/05/21 18:56 Myelocytes # 0.0 K/mm3 12/05/21 18:56 Promyelocytes # 0.0 K/mm3 12/05/21 18:56 Blast Cells # 0.0 K/mm3 12/05/21 18:56 WBC Morphology Not Reportable 12/05/21 18:56 Hypersegmented Neuts Not Reportable 12/05/21 18:56 Hyposegmented Neuts Not Reportable 12/05/21 18:56 Hypogranular Neuts Not Reportable 12/05/21 18:56 Smudge Cells Not Reportable 12/05/21 18:56 Toxic Granulation Not Reportable 12/05/21 18:56 Toxic Vacuolation Not Reportable 12/05/21 18:56 Dohle Bodies Not Reportable 12/05/21 18:56 Pelger-Huet Anomaly Not Reportable 12/05/21 18:56 Meron Rods Not Reportable 12/05/21 18:56 Platelet Estimate Not Reportable 12/05/21 18:56 Clumped Platelets Not Reportable 12/05/21 18:56 Plt Clumps, EDTA Not Reportable 12/05/21 18:56 Large Platelets Not Reportable 12/05/21 18:56 Giant Platelets Not Reportable 12/05/21 18:56 Platelet Satelliting Not Reportable 12/05/21 18:56 Plt Morphology Comment Not Reportable 12/05/21 18:56 RBC Morphology Not Reportable 12/05/21 18:56 Dimorphic RBCs Not Reportable 12/05/21 18:56 Polychromasia Not Reportable 12/05/21 18:56 Hypochromasia 1+ 12/05/21 18:56 Poikilocytosis Not Reportable 12/05/21 18:56 Anisocytosis Rare 12/05/21 18:56 Microcytosis Not Reportable 12/05/21 18:56 Macrocytosis Not Reportable 12/05/21 18:56 Spherocytes Not Reportable 12/05/21 18:56 Pappenheimer Bodies Not Reportable 12/05/21 18:56 Sickle Cells Not Reportable 12/05/21 18:56 Target Cells Not Reportable 12/05/21 18:56 Tear Drop Cells Not Reportable 12/05/21 18:56 Ovalocytes Not Reportable 12/05/21 18:56 Helmet Cells Not Reportable 12/05/21 18:56 Gauthier-Houstonia Bodies Not Reportable 12/05/21 18:56 [place] Rings Not Reportable 12/05/21 18:56 [place] Cells Not Reportable 12/05/21 18:56 Bite Cells Not Reportable 12/05/21 18:56 Crenated Cell Not Reportable 12/05/21 18:56 Elliptocytes Not Reportable 12/05/21 18:56 Acanthocytes (Spur) Not Reportable 12/05/21 18:56 Rouleaux Not Reportable 12/05/21 18:56 Hemoglobin C Crystals Not Reportable 12/05/21 18:56 Schistocytes Not Reportable 12/05/21 18:56 Malaria parasites Not Reportable 12/05/21 18:56 Angel Bodies Not Reportable 12/05/21 18:56 Hem Pathologist Commnt No 12/05/21 18:56 Sodium 137 mmol/L (137-145) 12/09/21 05:21 Potassium 3.7 mmol/L (3.6-5.0) 12/09/21 05:21 Chloride 103.3 mmol/L (98-107) 12/09/21 05:21 Carbon Dioxide 23 mmol/L (22-30) 12/09/21 05:21 Anion Gap 14 mmol/L 12/09/21 05:21 BUN 6 mg/dL (7-17) L 12/09/21 05:21 Creatinine 0.8 mg/dL (0.6-1.2) 12/09/21 05:21 Estimated GFR > 60 ml/min 12/09/21 05:21 BUN/Creatinine Ratio 8 % 12/09/21 05:21 Glucose 117 mg/dL (65-100) H 12/09/21 05:21 Lactic Acid 1.70 mmol/L (0.7-2.0) 12/05/21 21:21 Calcium 8.0 mg/dL (8.4-10.2) L 12/09/21 05:21 Total Bilirubin 0.40 mg/dL (0.1-1.2) 12/07/21 06:06 Direct Bilirubin < 0.2 mg/dL (0-0.2) 12/05/21 18:56 Indirect Bilirubin 0.3 mg/dL 12/05/21 18:56 AST 14 units/L (5-40) 12/07/21 06:06 ALT 10 units/L (7-56) 12/07/21 06:06 Alkaline Phosphatase 57 units/L (35-129) 12/07/21 06:06 Total Protein 7.3 g/dL (6.3-8.2) 12/07/21 06:06 Albumin 3.2 g/dL (3.9-5) L 12/07/21 06:06 Albumin/Globulin Ratio 0.8 % 12/07/21 06:06 Lipase 8 units/L (13-60) L 12/05/21 18:56 HCG, Qual Negative (Negative) 12/05/21 18:56 Urine Color Yellow (Yellow) 12/05/21 Unknown Urine Turbidity Turbid (Clear) 12/05/21 Unknown Urine pH 5.0 (5.0-7.0) 12/05/21 Unknown Ur Specific [place] 1.026 (1.003-1.030) 12/05/21 Unknown Urine Protein 30 mg/dl mg/dL (Negative) 12/05/21 Unknown Urine Glucose (UA) Neg mg/dL (Negative) 12/05/21 Unknown Urine Ketones 20 mg/dL (Negative) 12/05/21 Unknown Urine Blood Neg (Negative) 12/05/21 Unknown Urine Nitrite Neg (Negative) 12/05/21 Unknown Ur Reducing Substances Not Reportable 12/05/21 Unknown Urine Bilirubin Neg (Negative) 12/05/21 Unknown Urine Ictotest Not Reportable 12/05/21 Unknown Urine Urobilinogen < 2.0 mg/dL (<2.0) 12/05/21 Unknown Ur Leukocyte Esterase Neg (Negative) 12/05/21 Unknown Urine WBC (Auto) 57.0 /HPF (0.0-6.0) H 12/05/21 Unknown Urine RBC (Auto) 10.0 /HPF (0.0-6.0) 12/05/21 Unknown U Epithel Cells (Auto) 8.0 /HPF (0-13.0) 12/05/21 Unknown Urine Bacteria (Auto) 1+ /HPF (Negative) 12/05/21 Unknown Urine Mucus 3+ /HPF 12/05/21 Unknown Urine Yeast (Budding) 3+ /HPF 12/05/21 Unknown Blood Type O POSITIVE 12/06/21 09:25 Antibody Screen Negative 12/06/21 09:25 Microbiology: Microbiology 12/05/21 21:21 Peripheral/Venous Blood Culture - Preliminary NO GROWTH AFTER 72 HOURS 12/05/21 21:21 Peripheral/Venous Blood Culture - Preliminary NO GROWTH AFTER 72 HOURS 12/05/21 Unknown Urine,Clean Catch Urine Culture - Final [place]/IV: Voiding Method Toilet Active Medications - Current Medications Current Medications: Generic Name Dose Route Start Last Admin Trade Name Freq PRN Reason Stop Dose Admin Acetaminophen 650 mg 12/05/21 21:41 12/07/21 17:29 Acetaminophen 325 Mg Tab PO 650 mg Q4H PRN Administration Pain MILD(1-3)/Fever >100.5/VELASQUEZ Albuterol 2.5 mg 12/05/21 21:41 Albuterol 2.5 Mg/3 Ml Nebu IH Q3HRT PRN Shortness Of Breath Famotidine 20 mg 12/05/21 22:00 12/09/21 09:26 Famotidine 20 Mg/2 Ml Inj IV 20 mg BID VITO Administration Hydromorphone HCl 0.5 mg 12/05/21 21:41 12/08/21 11:17 Hydromorphone 1 Mg/1 Ml Inj IV 0.5 mg Q3H PRN Administration Pain , Severe (7-10) Piperacillin Sod/Tazobactam Sod 4.5 gm in 100 mls @ 200 mls/hr 12/06/21 06:00 12/09/21 06:09 Zosyn/Ns 4.5gm/100ml IV 200 mls/hr Q8H VITO Administration Protocol Potassium Chloride/Dextrose/Sod Cl 20 meq in 1,000 mls @ 75 mls/hr 12/08/21 14:00 12/09/21 04:49 D5w/Ns W/Kcl 20meq IV 75 mls/hr DIRECT VITO Administration Ketorolac Tromethamine 30 mg 12/07/21 11:00 12/09/21 04:45 Ketorolac 30 Mg/1 Ml Inj IV 12/12/21 10:59 30 mg Q6H VITO Administration Ondansetron HCl 4 mg 12/05/21 21:41 12/09/21 09:26 Ondansetron 4 Mg/2 Ml Inj IV 4 mg Q8H PRN Administration Nausea And Vomiting Oxycodone/Acetaminophen 1 tab 12/07/21 11:00 12/08/21 14:38 Oxycodone /Acetaminophen 5-325mg Tab PO 1 tab Q4H PRN Administration Pain, Moderate (4-6) Sodium Chloride 10 ml 12/05/21 22:00 12/09/21 09:27 Sodium Chloride 0.9% 10 Ml Flush Syringe IV 10 ml BID VITO Administration Sodium Chloride 10 ml 12/05/21 21:41 Sodium Chloride 0.9% 10 Ml Flush Syringe IV PRN PRN LINE FLUSH Nutrition/Malnutrition Assess - Dietary Evaluation Nutrition/Malnutrition Findings: Nutrition Notes Start: 12/06/21 15:24 Freq: Status: Active Protocol: Document 12/06/21 15:24 VANDANA (Rec: 12/06/21 15:44 VANDANA [email or web address]) Nutrition Notes Need for Assessment generated from: box stapler Initial or Follow up Assessment Other Pertinent Diagnosis s/p Appendectomy w/ ileocecectomy, Hypokalemia. Current Diet Clear Liquids Diet (since D ). Labs/Tests 12/06: Na 134, K 3.3, BUN 6, Glu 130, Ca 8.0. Pertinent Medications 12/06: D5/0.45ns 1000ml @ 100 ml/hr, others nutritionally unremarkable. 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 Weight Status Overweight Subjective/Other Information RD consult for skin risk assessment. Pt currently on NPO, after procedure diet will advance to CLD. Procedure 12/06: Laparoscopic hand-assisted lysis of adhesions, ileocecectomy. Well tolerated, according to Progress notes. Percent of energy/protein needs met: Prescribed Clear Liquids Diet provides for energy/protein needs (590 Kcal/16 g) during LOS Burn Absent Trauma Absent GI Symptoms Nausea,Vomiting,Other Food Allergy No Skin Integrity/Comment Surgical wound. Current % PO Other Minimum of two criteria No #1 Nutrition Diagnosis Predicted suboptimal energy intake Etiology Surgical procedure As Evidenced by Signs and Symptoms Procedure 12/06: Laparoscopic hand-assisted lysis of adhesions, ileocecectomy. Well tolerated, according to Progress notes. Is patient on ventilator? No Is Patient Ambulatory and/or Out of Bed Yes REE-([place]-St. Jeor-ambulatory/OOB) [ 2003.977 [id number]] Kcal/Kg value to use for calculation 23 Approximate Energy Requirements Using 1826 kcal/Kg Calculation Used for Recommendations Kcal/kg Additional Notes Protein: 1.5-2 g/Kg ABW; 119- 158 g/day. Fluids: 1 ml/Kcal, or as per MD. Nutrition Intervention Change Diet Order: Continue Clear Liquids Diet as tolerated. Goal #1 Maintain body weight within +/ -3% of admission body weight during LOS. Follow-Up By: 12/10/21 Additional Comments Continue monitoring food tolerance, %PO intake of meals , and BM.
[2021-12-09] MEDS ORDERED: ONDANSETRON 4 MG/2 ML INJ IV SCH (14:00)
[2021-12-09] MEDS ORDERED: ACETAMINOPHEN 325 MG TAB PO SCH (14:00)
--- NOTE | 2021-12-09 14:45 | Progress Note ---
Assessment and Plan 36 yo F s/p laparoscopic hand assisted lysis of adhesions, ileocecectomy, POD 2 for perforated appendicitis with abscess JACKLYN output 280cc/24hr serous Plan: 1. CLD -> please DO NOT advance. Pt will have ileus. 2. gentle IVF 3. IV abx - zosyn 4. prn pain and nausea control 5. OOB/ambulate 6. IS/pulm toilet 7. ice to incisions 8. monitor JACKLYN drain output 9. follow up blcx and ucx Thank you, please call with questions. Subjective Date of service: 12/09/21 Narrative: Pt seen and examined. Afebrile. Had bilious vomiting after eating a regular diet this am. +Flatus, no BM. Has been ambulating in hallways Objective Vital Signs - 12hr 12/09/21 12/09/21 12/09/21 04:45 05:15 05:19 Temperature 98.5 F Pulse Rate 109 H Respiratory 20 18 20 Rate Blood Pressure 114/77 O2 Sat by Pulse 98 Oximetry 12/09/21 10:00 Temperature Pulse Rate Respiratory Rate Blood Pressure O2 Sat by Pulse 98 Oximetry - General physical appearance Narrative Exam: Gen.: AAOx3. No apparent distress ENT: Trachea midline. No lymphadenopathy. No scleral icterus or conjunctival pallor CV: S1, S2 present Respiratory: No audible wheezes Abdomen: Soft, mildly distended, nontender. Incisions c/d/i. JACKLYN drain serous. No rebound, rigidity, guarding Extremities: No clubbing, cyanosis, edema - Labs 12/09/21 05:21 12/09/21 05:21 Diabetes panel 12/09/21 Range/Units 05:21 Sodium 137 (137-145) mmol/L Potassium 3.7 (3.6-5.0) mmol/L Chloride 103.3 (98-107) mmol/L Carbon Dioxide 23 (22-30) mmol/L BUN 6 L (7-17) mg/dL Creatinine 0.8 (0.6-1.2) mg/dL Glucose 117 H (65-100) mg/dL Calcium 8.0 L (8.4-10.2) mg/dL Calcium panel 12/09/21 Range/Units 05:21 Calcium 8.0 L (8.4-10.2) mg/dL Pituitary panel 12/09/21 Range/Units 05:21 Sodium 137 (137-145) mmol/L Potassium 3.7 (3.6-5.0) mmol/L Chloride 103.3 (98-107) mmol/L Carbon Dioxide 23 (22-30) mmol/L BUN 6 L (7-17) mg/dL Creatinine 0.8 (0.6-1.2) mg/dL Glucose 117 H (65-100) mg/dL Calcium 8.0 L (8.4-10.2) mg/dL Adrenal panel 12/09/21 Range/Units 05:21 Sodium 137 (137-145) mmol/L Potassium 3.7 (3.6-5.0) mmol/L Chloride 103.3 (98-107) mmol/L Carbon Dioxide 23 (22-30) mmol/L BUN 6 L (7-17) mg/dL Creatinine 0.8 (0.6-1.2) mg/dL Glucose 117 H (65-100) mg/dL Calcium 8.0 L (8.4-10.2) mg/dL
[2021-12-09] MEDS: ACETAMINOPHEN 500 MG TAB PO SCH ×2 (17:33→23:04)
[2021-12-09] MEDS: HYDROmorphone 1 MG/1 ML INJ IV PRN (17:35)
[2021-12-09] MEDS: ONDANSETRON 4 MG/2 ML INJ IV SCH ×2 (17:55→21:24)
[2021-12-10] MEDS: HYDROmorphone 1 MG/1 ML INJ IV PRN (02:41)
[2021-12-10] MEDS: ONDANSETRON 4 MG/2 ML INJ IV SCH ×4 (05:10→22:03)
[2021-12-10] MEDS: PIPERACIL/TAZOBACTA 4.5/NS 100 4.5 GM/100 ML VIAL IV SCH ×3 (05:11→22:02)
[2021-12-10] MEDS: KETOROLAC 30 MG/1 ML INJ IV SCH ×4 (05:11→22:01)
[2021-12-10] MEDS: ACETAMINOPHEN 500 MG TAB PO SCH ×3 (08:47→16:12)
[2021-12-10] MEDS: FAMOTIDINE 20 MG/2 ML INJ IV SCH (10:00)
[2021-12-10] MEDS: D5NS W/KCL 20 MEQ 20 MEQ/1,000 ML BAG IV SCH (10:39)
--- NOTE | 2021-12-10 11:12 | Progress Note ---
Assessment and Plan Assessment and plan: #Acute perforated appendicitis Heart rate as high as 115, WBC 11.5. Patient's RN reported T-max of 103. Visualized on CT abdomen/pelvis Continue Zosyn 4.5 g every 8 hours General surgery consulted; appreciate recs. Status post laparoscopic appendectomy with ileal resection and reanastomosis on 12/06/2021. Continue antiemetics and analgesics as needed. Encouraged patient to mobilize. Continue clear liquid diet #Hypokalemiaresolved Potassium 3.3 Repleted. Continue to monitor #Obesity #Weight loss counseling #Exercise counseling - BMI 36.5 - Counseled patient on the importance of weight loss, incorporating exercise, and dietary changes (lean meats, fresh fruits and vegetables, and water intake). Patient expresses understanding. - Time: +15 min #Advanced care planning -Disease education conducted, care plan discussed, diagnoses discussed, prognosis discussed, and patient acknowledges understanding with care plan -Time: +30 min #Discharge planning - Patient is pending ability to tolerate solid food and removal of JACKLYN drain - Case management has been made aware. Disposition Plan: Continue medical management Total Time Spent with Patient (Minutes): 30 minutes History Interval history: No acute events overnight. Hospitalist Physical - Constitutional Vitals: Temp Pulse Resp BP Pulse Ox 98.9 F 90 16 114/69 93 12/10/21 03:55 12/10/21 03:55 12/10/21 03:55 12/10/21 03:55 12/10/21 03:55 General appearance: Present: no acute distress, well-nourished, obese - EENT Eyes: Present: PERRL, EOM intact ENT: hearing intact, clear oral mucosa, dentition normal - Neck Neck: Present: supple, normal ROM - Respiratory Respiratory effort: normal - Cardiovascular Rhythm: regular Heart Sounds: Present: S1 & S2 - Extremities Extremities: no ischemia, pulses intact, pulses symmetrical, No edema, normal temperature, normal color, Full ROM Peripheral Pulses: within normal limits - Abdominal General gastrointestinal: soft, tender, non-distended, normal bowel sounds, other (JACKLYN drain in place with serous output) Localized gastrointestinal: tender: RLQ, LLQ - Integumentary Integumentary: Present: clear, warm, dry - Psychiatric Psychiatric: appropriate mood/affect, intact judgment & insight, memory intact, cooperative - Neurologic Neurologic: CNII-XII intact, moves all extremities - Allied Health Allied health notes reviewed: nursing Results - Labs CBC & Chem 7: 12/09/21 05:21 12/09/21 05:21 Labs: Laboratory Last Values WBC 8.3 K/mm3 (4.5-11.0) 12/09/21 05:21 RBC 3.89 M/mm3 (3.65-5.03) 12/09/21 05:21 Hgb 8.9 gm/dl (10.1-14.3) L 12/09/21 05:21 Hct 28.6 % (30.3-42.9) L 12/09/21 05:21 MCV 74 fl (79-97) L 12/09/21 05:21 MCH 23 pg (28-32) L 12/09/21 05:21 MCHC 31 % (30-34) 12/09/21 05:21 RDW 17.1 % (13.2-15.2) H 12/09/21 05:21 Plt Count 345 K/mm3 (140-440) 12/09/21 05:21 Lymph % (Auto) 9.0 % (13.4-35.0) L 12/09/21 05:21 B[place] % (Auto) 8.0 % (0.0-7.3) H 12/09/21 05:21 Eos % (Auto) 1.3 % (0.0-4.3) 12/09/21 05:21 Baso % (Auto) 0.4 % (0.0-1.8) 12/09/21 05:21 Lymph # (Auto) 0.7 K/mm3 (1.2-5.4) L 12/09/21 05:21 [place] # (Auto) 0.7 K/mm3 (0.0-0.8) 12/09/21 05:21 Eos # (Auto) 0.1 K/mm3 (0.0-0.4) 12/09/21 05:21 Baso # (Auto) 0.0 K/mm3 (0.0-0.1) 12/09/21 05:21 Add Manual Diff Complete 12/05/21 18:56 Total Counted 100 12/05/21 18:56 Seg Neutrophils % 81.3 % (40.0-70.0) H 12/09/21 05:21 Seg Neuts % (Manual) 88.0 % (40.0-70.0) H 12/05/21 18:56 Band Neutrophils % 0 % 12/05/21 18:56 Lymphocytes % (Manual) 5.0 % (13.4-35.0) L 12/05/21 18:56 Reactive Lymphs % (Man) 0 % 12/05/21 18:56 Monocytes % (Manual) 7.0 % (0.0-7.3) 12/05/21 18:56 Eosinophils % (Manual) 0 % (0.0-4.3) 12/05/21 18:56 Basophils % (Manual) 0 % (0.0-1.8) 12/05/21 18:56 Metamyelocytes % 0 % 12/05/21 18:56 Myelocytes % 0 % 12/05/21 18:56 Promyelocytes % 0 % 12/05/21 18:56 Blast Cells % 0 % 12/05/21 18:56 Nucleated RBC % Not Reportable 12/05/21 18:56 Seg Neutrophils # 6.8 K/mm3 (1.8-7.7) 12/09/21 05:21 Seg Neutrophils # Man 10.1 K/mm3 (1.8-7.7) H 12/05/21 18:56 Band Neutrophils # 0.0 K/mm3 12/05/21 18:56 Lymphocytes # (Manual) 0.6 K/mm3 (1.2-5.4) L 12/05/21 18:56 Abs React Lymphs (Man) 0.0 K/mm3 12/05/21 18:56 Monocytes # (Manual) 0.8 K/mm3 (0.0-0.8) 12/05/21 18:56 Eosinophils # (Manual) 0.0 K/mm3 (0.0-0.4) 12/05/21 18:56 Basophils # (Manual) 0.0 K/mm3 (0.0-0.1) 12/05/21 18:56 Metamyelocytes # 0.0 K/mm3 12/05/21 18:56 Myelocytes # 0.0 K/mm3 12/05/21 18:56 Promyelocytes # 0.0 K/mm3 12/05/21 18:56 Blast Cells # 0.0 K/mm3 12/05/21 18:56 WBC Morphology Not Reportable 12/05/21 18:56 Hypersegmented Neuts Not Reportable 12/05/21 18:56 Hyposegmented Neuts Not Reportable 12/05/21 18:56 Hypogranular Neuts Not Reportable 12/05/21 18:56 Smudge Cells Not Reportable 12/05/21 18:56 Toxic Granulation Not Reportable 12/05/21 18:56 Toxic Vacuolation Not Reportable 12/05/21 18:56 Dohle Bodies Not Reportable 12/05/21 18:56 Pelger-Huet Anomaly Not Reportable 12/05/21 18:56 Meron Rods Not Reportable 12/05/21 18:56 Platelet Estimate Not Reportable 12/05/21 18:56 Clumped Platelets Not Reportable 12/05/21 18:56 Plt Clumps, EDTA Not Reportable 12/05/21 18:56 Large Platelets Not Reportable 12/05/21 18:56 Giant Platelets Not Reportable 12/05/21 18:56 Platelet Satelliting Not Reportable 12/05/21 18:56 Plt Morphology Comment Not Reportable 12/05/21 18:56 RBC Morphology Not Reportable 12/05/21 18:56 Dimorphic RBCs Not Reportable 12/05/21 18:56 Polychromasia Not Reportable 12/05/21 18:56 Hypochromasia 1+ 12/05/21 18:56 Poikilocytosis Not Reportable 12/05/21 18:56 Anisocytosis Rare 12/05/21 18:56 Microcytosis Not Reportable 12/05/21 18:56 Macrocytosis Not Reportable 12/05/21 18:56 Spherocytes Not Reportable 12/05/21 18:56 Pappenheimer Bodies Not Reportable 12/05/21 18:56 Sickle Cells Not Reportable 12/05/21 18:56 Target Cells Not Reportable 12/05/21 18:56 Tear Drop Cells Not Reportable 12/05/21 18:56 Ovalocytes Not Reportable 12/05/21 18:56 Helmet Cells Not Reportable 12/05/21 18:56 [place] Bodies Not Reportable 12/05/21 18:56 [place] Rings Not Reportable 12/05/21 18:56 [place] Cells Not Reportable 12/05/21 18:56 Bite Cells Not Reportable 12/05/21 18:56 Crenated Cell Not Reportable 12/05/21 18:56 Elliptocytes Not Reportable 12/05/21 18:56 Acanthocytes (Spur) Not Reportable 12/05/21 18:56 Rouleaux Not Reportable 12/05/21 18:56 Hemoglobin C Crystals Not Reportable 12/05/21 18:56 Schistocytes Not Reportable 12/05/21 18:56 Malaria parasites Not Reportable 12/05/21 18:56 Angel Bodies Not Reportable 12/05/21 18:56 Hem Pathologist Commnt No 12/05/21 18:56 Sodium 137 mmol/L (137-145) 12/09/21 05:21 Potassium 3.7 mmol/L (3.6-5.0) 12/09/21 05:21 Chloride 103.3 mmol/L (98-107) 12/09/21 05:21 Carbon Dioxide 23 mmol/L (22-30) 12/09/21 05:21 Anion Gap 14 mmol/L 12/09/21 05:21 BUN 6 mg/dL (7-17) L 12/09/21 05:21 Creatinine 0.8 mg/dL (0.6-1.2) 12/09/21 05:21 Estimated GFR > 60 ml/min 12/09/21 05:21 BUN/Creatinine Ratio 8 % 12/09/21 05:21 Glucose 117 mg/dL (65-100) H 12/09/21 05:21 Lactic Acid 1.70 mmol/L (0.7-2.0) 12/05/21 21:21 Calcium 8.0 mg/dL (8.4-10.2) L 12/09/21 05:21 Total Bilirubin 0.40 mg/dL (0.1-1.2) 12/07/21 06:06 Direct Bilirubin < 0.2 mg/dL (0-0.2) 12/05/21 18:56 Indirect Bilirubin 0.3 mg/dL 12/05/21 18:56 AST 14 units/L (5-40) 12/07/21 06:06 ALT 10 units/L (7-56) 12/07/21 06:06 Alkaline Phosphatase 57 units/L (35-129) 12/07/21 06:06 Total Protein 7.3 g/dL (6.3-8.2) 12/07/21 06:06 Albumin 3.2 g/dL (3.9-5) L 12/07/21 06:06 Albumin/Globulin Ratio 0.8 % 12/07/21 06:06 Lipase 8 units/L (13-60) L 12/05/21 18:56 HCG, Qual Negative (Negative) 12/05/21 18:56 Urine Color Yellow (Yellow) 12/05/21 Unknown Urine Turbidity Turbid (Clear) 12/05/21 Unknown Urine pH 5.0 (5.0-7.0) 12/05/21 Unknown Ur Specific [place] 1.026 (1.003-1.030) 12/05/21 Unknown Urine Protein 30 mg/dl mg/dL (Negative) 12/05/21 Unknown Urine Glucose (UA) Neg mg/dL (Negative) 12/05/21 Unknown Urine Ketones 20 mg/dL (Negative) 12/05/21 Unknown Urine Blood Neg (Negative) 12/05/21 Unknown Urine Nitrite Neg (Negative) 12/05/21 Unknown Ur Reducing Substances Not Reportable 12/05/21 Unknown Urine Bilirubin Neg (Negative) 12/05/21 Unknown Urine Ictotest Not Reportable 12/05/21 Unknown Urine Urobilinogen < 2.0 mg/dL (<2.0) 12/05/21 Unknown Ur Leukocyte Esterase Neg (Negative) 12/05/21 Unknown Urine WBC (Auto) 57.0 /HPF (0.0-6.0) H 12/05/21 Unknown Urine RBC (Auto) 10.0 /HPF (0.0-6.0) 12/05/21 Unknown U Epithel Cells (Auto) 8.0 /HPF (0-13.0) 12/05/21 Unknown Urine Bacteria (Auto) 1+ /HPF (Negative) 12/05/21 Unknown Urine Mucus 3+ /HPF 12/05/21 Unknown Urine Yeast (Budding) 3+ /HPF 12/05/21 Unknown Blood Type O POSITIVE 12/06/21 09:25 Antibody Screen Negative 12/06/21 09:25 Microbiology: Microbiology 12/05/21 21:21 Peripheral/Venous Blood Culture - Preliminary NO GROWTH AFTER 4 DAYS 12/05/21 21:21 Peripheral/Venous Blood Culture - Preliminary NO GROWTH AFTER 4 DAYS [place]/IV: Voiding Method Toilet Active Medications - Current Medications Current Medications: Generic Name Dose Route Start Last Admin Trade Name Freq PRN Reason Stop Dose Admin Acetaminophen 1,000 mg 12/09/21 15:00 12/10/21 08:47 Acetaminophen 500 Mg Tab PO 1,000 mg Q8H VITO Administration Albuterol 2.5 mg 12/05/21 21:41 Albuterol 2.5 Mg/3 Ml Nebu IH Q3HRT PRN Shortness Of Breath Famotidine 20 mg 12/05/21 22:00 12/10/21 10:00 Famotidine 20 Mg/2 Ml Inj IV 20 mg BID VITO Administration Hydromorphone HCl 0.5 mg 12/05/21 21:41 12/10/21 02:41 Hydromorphone 1 Mg/1 Ml Inj IV 0.5 mg Q3H PRN Administration Pain , Severe (7-10) Piperacillin Sod/Tazobactam Sod 4.5 gm in 100 mls @ 200 mls/hr 12/06/21 06:00 12/10/21 05:11 Zosyn/Ns 4.5gm/100ml IV 200 mls/hr Q8H IVTO Administration Protocol Potassium Chloride/Dextrose/Sod Cl 20 meq in 1,000 mls @ 75 mls/hr 12/08/21 14:00 12/10/21 10:39 D5w/Ns W/Kcl 20meq IV 75 mls/hr DIRECT VITO Administration Ketorolac Tromethamine 30 mg 12/07/21 11:00 12/10/21 05:11 Ketorolac 30 Mg/1 Ml Inj IV 12/12/21 10:59 30 mg Q6H VITO Administration Ondansetron HCl 4 mg 12/09/21 16:00 12/10/21 10:04 Ondansetron 4 Mg/2 Ml Inj IV 4 mg Q6H VITO Administration Sodium Chloride 10 ml 12/05/21 22:00 12/10/21 10:00 Sodium Chloride 0.9% 10 Ml Flush Syringe IV 10 ml BID VITO Administration Sodium Chloride 10 ml 12/05/21 21:41 Sodium Chloride 0.9% 10 Ml Flush Syringe IV PRN PRN LINE FLUSH Nutrition/Malnutrition Assess - Dietary Evaluation Nutrition/Malnutrition Findings: Nutrition Notes Start: 12/06/21 1 5:24 Freq: Status: Active Protocol: Document 12/06/21 15:24 VANDANA (Rec: 12/06/21 15:44 VANDANA [id number]) Nutrition Notes Need for 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 Current Diet Clear Liquids Diet (since D ). Labs/Tests 12/06: Na 134, K 3.3, BUN 6, Glu 130, Ca 8.0. Pertinent Medications 12/06: D5/0.45ns 1000ml @ 100 ml/hr, others nutritionally unremarkable. 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 Weight Status Overweight Subjective/Other Information RD consult for skin risk assessment. Pt currently on NPO, after procedure diet will advance to CLD. Procedure 12/06: Laparoscopic hand-assisted lysis of adhesions, ileocecectomy. Well tolerated, according to Progress notes. Percent of energy/protein needs met: Prescribed Clear Liquids Diet provides for energy/protein needs (590 Kcal/16 g) during LOS Burn Absent Trauma Absent GI Symptoms Nausea,Vomiting,Other Food Allergy No Skin Integrity/Comment Surgical wound. Current % PO Other Minimum of two criteria No #1 Nutrition Diagnosis Predicted suboptimal energy intake Etiology Surgical procedure As Evidenced by Signs and Symptoms Procedure 12/06: Laparoscopic hand-assisted lysis of adhesions, ileocecectomy. Well tolerated, according to Progress notes. Is patient on ventilator? No Is Patient Ambulatory and/or Out of Bed Yes REE-([place]-ambulatory/OOB) [ 2004.977 [id number]] Kcal/Kg value to use for calculation 23 Approximate Energy Requirements Using 1826 kcal/Kg Calculation Used for Recommendations Kcal/kg Additional Notes Protein: 1.5-2 g/Kg ABW; 119- 158 g/day. Fluids: 1 ml/Kcal, or as per MD. Nutrition Intervention Change Diet Order: Continue Clear Liquids Diet as tolerated. Goal #1 Maintain body weight within +/ -3% of admission body weight during LOS. Follow-Up By: 12/10/21 Additional Comments Continue monitoring food tolerance, %PO intake of meals , and BM.
[2021-12-10] MEDS ORDERED: HYDROcodone/ACETAMINOPHEN 5-325 MG TAB PO PRN (17:36)
--- NOTE | 2021-12-10 17:40 | Progress Note ---
Assessment and Plan 36 yo F s/p laparoscopic hand assisted lysis of adhesions, ileocecectomy, POD 3 for perforated appendicitis with abscess Ucx - negative Bl cx - negative x 4 days Plan: 1. CLD -> FLD in am. Likely will dc on FLD 2. May DC IV fluids 3. IV abx - zosyn -we will transition to p.o. Augmentin at discharge - total of 14 days of antibiotics since admission 4. prn pain and nausea control - stop tylenol per pt request. Will start tramadol. 5. OOB/ambulate 6. IS/pulm toilet 7. ice to incisions 8. monitor JACKLYN drain output -possible DC JACKLYN prior to discharge Possible DC tomorrow. Thank you, please call with questions. Subjective Date of service: 12/10/21 Narrative: Pt seen and examined. She states she feels well today. No fevers or chills. She has been tolerating clear liquids better today. No nausea or vomiting. She is passing flatus and had a small bowel movement today. She states she had extreme difficulty swallowing p.o. Tylenol and no longer wants it. She has been ambulating. Objective Vital Signs - 12hr 12/10/21 12/10/21 12/10/21 10:00 11:29 13:43 Temperature 99.0 F Pulse Rate 99 H Respiratory 18 18 Rate Blood Pressure 125/66 O2 Sat by Pulse 98 96 99 Oximetry - General physical appearance Narrative Exam: Gen.: Awake, alert, oriented x3. No apparent distress ENT: Trachea midline. No lymphadenopathy. No scleral icterus or conjunctival pallor CV: S1, S2 present Respiratory: No audible wheezes Abdomen: Soft, nondistended, nontender. Incisions dry, intact with appropriate to palpation. JACKLYN drain is serous. No rebound, rigidity, guarding Extremities: No clubbing, cyanosis, edema Repeat drain output: 240 cc over 12 hours serous - Labs 12/09/21 05:21 12/09/21 05:21
[2021-12-10] MEDS ORDERED: traMADol 50 MG TAB PO PRN (17:47)
[2021-12-11] MEDS: HYDROmorphone 1 MG/1 ML INJ IV PRN (00:25)
[2021-12-11] MEDS: KETOROLAC 30 MG/1 ML INJ IV SCH ×4 (05:05→22:15)
[2021-12-11] MEDS: ONDANSETRON 4 MG/2 ML INJ IV SCH ×2 (05:05→09:23)
[2021-12-11] MEDS: PIPERACIL/TAZOBACTA 4.5/NS 100 4.5 GM/100 ML VIAL IV SCH ×3 (05:07→21:35)
[2021-12-11] MEDS ORDERED: ONDANSETRON 4 MG/2 ML INJ IV PRN (10:07)
--- NOTE | 2021-12-11 14:16 | Progress Note ---
Assessment and Plan Assessment and plan: #Sepsis- resolved #Acute perforated appendicitis Visualized on CT abdomen/pelvis Continue Zosyn 4.5 g every 8 hours while inpatient -Augmentin at discharge to complete 14-day course General surgery consulted; appreciate recs. Status post laparoscopic appendectomy with ileal resection and reanastomosis on 12/06/2021. Continue antiemetics and analgesics as needed. Encouraged patient to mobilize. Advanced to full liquid diet #Hypokalemiaresolved Repleted. Continue to monitor #Obesity #Weight loss counseling #Exercise counseling - BMI 36.5 - Counseled patient on the importance of weight loss, incorporating exercise, and dietary changes (lean meats, fresh fruits and vegetables, and water intake). Patient expresses understanding. - Time: +15 min #Advanced care planning -Disease education conducted, care plan discussed, diagnoses discussed, prognosis discussed, and patient acknowledges understanding with care plan -Time: +30 min #Discharge planning -Patient is pending ability to FOD and removal of JACKLYN drain -Case management has been made aware -Anticipate discharge within 24 hours History Interval history: No acute vents overnight. Patient reports abdominal pain whenever she lies flat. Has no other complaints at this time. Hospitalist Physical - Physical exam Narrative exam: GENERAL: Well-developed well-nourished. Sitting on the side of the bed in no acute distress. HEENT: Normocephalic. Atraumatic. NECK: Supple. CHEST/LUNGS: CTAB on room air HEART/CARDIOVASCULAR: RRR. No murmur, rubs or gallops appreciated. ABDOMEN: JACKLYN drain draining clear fluid. +BS. ND. Mildly tender to palpation SKIN: No rashes noted. NEURO: No focal motor deficit. Follows all commands. EXTREMITIES: No cyanosis, clubbing or edema. PSYCH: Cooperative. - Constitutional Vitals: Temp Pulse Resp BP Pulse Ox 99.0 F 88 16 117/80 99 12/11/21 11:11 12/11/21 11:11 12/11/21 11:11 12/11/21 11:11 12/11/21 11:11 General appearance: Present: no acute distress, well-nourished, obese Results - Labs CBC & Chem 7: 12/09/21 05:21 12/09/21 05:21 Labs: Laboratory Last Values WBC 8.3 K/mm3 (4.5-11.0) 12/09/21 05:21 RBC 3.89 M/mm3 (3.65-5.03) 12/09/21 05:21 Hgb 8.9 gm/dl (10.1-14.3) L 12/09/21 05:21 Hct 28.6 % (30.3-42.9) L 12/09/21 05:21 MCV 74 fl (79-97) L 12/09/21 05:21 MCH 23 pg (28-32) L 12/09/21 05:21 MCHC 31 % (30-34) 12/09/21 05:21 RDW 17.1 % (13.2-15.2) H 12/09/21 05:21 Plt Count 345 K/mm3 (140-440) 12/09/21 05:21 Lymph % (Auto) 9.0 % (13.4-35.0) L 12/09/21 05:21 [place] % (Auto) 8.0 % (0.0-7.3) H 12/09/21 05:21 Eos % (Auto) 1.3 % (0.0-4.3) 12/09/21 05:21 Baso % (Auto) 0.4 % (0.0-1.8) 12/09/21 05:21 Lymph # (Auto) 0.7 K/mm3 (1.2-5.4) L 12/09/21 05:21 [place] # (Auto) 0.7 K/mm3 (0.0-0.8) 12/09/21 05:21 Eos # (Auto) 0.1 K/mm3 (0.0-0.4) 12/09/21 05:21 Baso # (Auto) 0.0 K/mm3 (0.0-0.1) 12/09/21 05:21 Add Manual Diff Complete 12/05/21 18:56 Total Counted 100 12/05/21 18:56 Seg Neutrophils % 81.3 % (40.0-70.0) H 12/09/21 05:21 Seg Neuts % (Manual) 88.0 % (40.0-70.0) H 12/05/21 18:56 Band Neutrophils % 0 % 12/05/21 18:56 Lymphocytes % (Manual) 5.0 % (13.4-35.0) L 12/05/21 18:56 Reactive Lymphs % (Man) 0 % 12/05/21 18:56 Monocytes % (Manual) 7.0 % (0.0-7.3) 12/05/21 18:56 Eosinophils % (Manual) 0 % (0.0-4.3) 12/05/21 18:56 Basophils % (Manual) 0 % (0.0-1.8) 12/05/21 18:56 Metamyelocytes % 0 % 12/05/21 18:56 Myelocytes % 0 % 12/05/21 18:56 Promyelocytes % 0 % 12/05/21 18:56 Blast Cells % 0 % 12/05/21 18:56 Nucleated RBC % Not Reportable 12/05/21 18:56 Seg Neutrophils # 6.8 K/mm3 (1.8-7.7) 12/09/21 05:21 Seg Neutrophils # Man 10.1 K/mm3 (1.8-7.7) H 12/05/21 18:56 Band Neutrophils # 0.0 K/mm3 12/05/21 18:56 Lymphocytes # (Manual) 0.6 K/mm3 (1.2-5.4) L 12/05/21 18:56 Abs React Lymphs (Man) 0.0 K/mm3 12/05/21 18:56 Monocytes # (Manual) 0.8 K/mm3 (0.0-0.8) 12/05/21 18:56 Eosinophils # (Manual) 0.0 K/mm3 (0.0-0.4) 12/05/21 18:56 Basophils # (Manual) 0.0 K/mm3 (0.0-0.1) 12/05/21 18:56 Metamyelocytes # 0.0 K/mm3 12/05/21 18:56 Myelocytes # 0.0 K/mm3 12/05/21 18:56 Promyelocytes # 0.0 K/mm3 12/05/21 18:56 Blast Cells # 0.0 K/mm3 12/05/21 18:56 WBC Morphology Not Reportable 12/05/21 18:56 Hypersegmented Neuts Not Reportable 12/05/21 18:56 Hyposegmented Neuts Not Reportable 12/05/21 18:56 Hypogranular Neuts Not Reportable 12/05/21 18:56 Smudge Cells Not Reportable 12/05/21 18:56 Toxic Granulation Not Reportable 12/05/21 18:56 Toxic Vacuolation Not Reportable 12/05/21 18:56 Dohle Bodies Not Reportable 12/05/21 18:56 Pelger-Huet Anomaly Not Reportable 12/05/21 18:56 Meron Rods Not Reportable 12/05/21 18:56 Platelet Estimate Not Reportable 12/05/21 18:56 Clumped Platelets Not Reportable 12/05/21 18:56 Plt Clumps, EDTA Not Reportable 12/05/21 18:56 Large Platelets Not Reportable 12/05/21 18:56 Giant Platelets Not Reportable 12/05/21 18:56 Platelet Satelliting Not Reportable 12/05/21 18:56 Plt Morphology Comment Not Reportable 12/05/21 18:56 RBC Morphology Not Reportable 12/05/21 18:56 Dimorphic RBCs Not Reportable 12/05/21 18:56 Polychromasia Not Reportable 12/05/21 18:56 Hypochromasia 1+ 12/05/21 18:56 Poikilocytosis Not Reportable 12/05/21 18:56 Anisocytosis Rare 12/05/21 18:56 Microcytosis Not Reportable 12/05/21 18:56 Macrocytosis Not Reportable 12/05/21 18:56 Spherocytes Not Reportable 12/05/21 18:56 Pappenheimer Bodies Not Reportable 12/05/21 18:56 Sickle Cells Not Reportable 12/05/21 18:56 Target Cells Not Reportable 12/05/21 18:56 Tear Drop Cells Not Reportable 12/05/21 18:56 Ovalocytes Not Reportable 12/05/21 18:56 Helmet Cells Not Reportable 12/05/21 18:56 Gauthier-Sturgeon Bodies Not Reportable 12/05/21 18:56 [place] Rings Not Reportable 12/05/21 18:56 Alexander Cells Not Reportable 12/05/21 18:56 Bite Cells Not Reportable 12/05/21 18:56 Crenated Cell Not Reportable 12/05/21 18:56 Elliptocytes Not Reportable 12/05/21 18:56 Acanthocytes (Spur) Not Reportable 12/05/21 18:56 Rouleaux Not Reportable 12/05/21 18:56 Hemoglobin C Crystals Not Reportable 12/05/21 18:56 Schistocytes Not Reportable 12/05/21 18:56 Malaria parasites Not Reportable 12/05/21 18:56 Angel Bodies Not Reportable 12/05/21 18:56 Hem Pathologist Commnt No 12/05/21 18:56 Sodium 137 mmol/L (137-145) 12/09/21 05:21 Potassium 3.7 mmol/L (3.6-5.0) 12/09/21 05:21 Chloride 103.3 mmol/L (98-107) 12/09/21 05:21 Carbon Dioxide 23 mmol/L (22-30) 12/09/21 05:21 Anion Gap 14 mmol/L 12/09/21 05:21 BUN 6 mg/dL (7-17) L 12/09/21 05:21 Creatinine 0.8 mg/dL (0.6-1.2) 12/09/21 05:21 Estimated GFR > 60 ml/min 12/09/21 05:21 BUN/Creatinine Ratio 8 % 12/09/21 05:21 Glucose 117 mg/dL (65-100) H 12/09/21 05:21 Lactic Acid 1.70 mmol/L (0.7-2.0) 12/05/21 21:21 Calcium 8.0 mg/dL (8.4-10.2) L 12/09/21 05:21 Total Bilirubin 0.40 mg/dL (0.1-1.2) 12/07/21 06:06 Direct Bilirubin < 0.2 mg/dL (0-0.2) 12/05/21 18:56 Indirect Bilirubin 0.3 mg/dL 12/05/21 18:56 AST 14 units/L (5-40) 12/07/21 06:06 ALT 10 units/L (7-56) 12/07/21 06:06 Alkaline Phosphatase 57 units/L (35-129) 12/07/21 06:06 Total Protein 7.3 g/dL (6.3-8.2) 12/07/21 06:06 Albumin 3.2 g/dL (3.9-5) L 12/07/21 06:06 Albumin/Globulin Ratio 0.8 % 12/07/21 06:06 Lipase 8 units/L (13-60) L 12/05/21 18:56 HCG, Qual Negative (Negative) 12/05/21 18:56 Urine Color Yellow (Yellow) 12/05/21 Unknown Urine Turbidity Turbid (Clear) 12/05/21 Unknown Urine pH 5.0 (5.0-7.0) 12/05/21 Unknown Ur Specific [place] 1.026 (1.003-1.030) 12/05/21 Unknown Urine Protein 30 mg/dl mg/dL (Negative) 12/05/21 Unknown Urine Glucose (UA) Neg mg/dL (Negative) 12/05/21 Unknown Urine Ketones 20 mg/dL (Negative) 12/05/21 Unknown Urine Blood Neg (Negative) 12/05/21 Unknown Urine Nitrite Neg (Negative) 12/05/21 Unknown Ur Reducing Substances Not Reportable 12/05/21 Unknown Urine Bilirubin Neg (Negative) 12/05/21 Unknown Urine Ictotest Not Reportable 12/05/21 Unknown Urine Urobilinogen < 2.0 mg/dL (<2.0) 12/05/21 Unknown Ur Leukocyte Esterase Neg (Negative) 12/05/21 Unknown Urine WBC (Auto) 57.0 /HPF (0.0-6.0) H 12/05/21 Unknown Urine RBC (Auto) 10.0 /HPF (0.0-6.0) 12/05/21 Unknown U Epithel Cells (Auto) 8.0 /HPF (0-13.0) 12/05/21 Unknown Urine Bacteria (Auto) 1+ /HPF (Negative) 12/05/21 Unknown Urine Mucus 3+ /HPF 12/05/21 Unknown Urine Yeast (Budding) 3+ /HPF 12/05/21 Unknown Blood Type O POSITIVE 12/06/21 09:25 Antibody Screen Negative 12/06/21 09:25 Microbiology: Microbiology 12/05/21 21:21 Peripheral/Venous Blood Culture - Final NO GROWTH AFTER 5 DAYS 12/05/21 21:21 Peripheral/Venous Blood Culture - Final NO GROWTH AFTER 5 DAYS [place]/IV: Voiding Method Toilet Active Medications - Current Medications Current Medications: Generic Name Dose Route Start Last Admin Trade Name Freq PRN Reason Stop Dose Admin Albuterol 2.5 mg 12/05/21 21:41 Albuterol 2.5 Mg/3 Ml Nebu IH Q3HRT PRN Shortness Of Breath Hydromorphone HCl 0.5 mg 12/05/21 21:41 12/11/21 00:25 Hydromorphone 1 Mg/1 Ml Inj IV 0.5 mg Q3H PRN Administration Pain , Severe (7-10) Piperacillin Sod/Tazobactam Sod 4.5 gm in 100 mls @ 200 mls/hr 12/06/21 06:00 12/11/21 13:46 Zosyn/Ns 4.5gm/100ml IV 200 mls/hr Q8H VITO Administration Protocol Ketorolac Tromethamine 30 mg 12/07/21 11:00 12/11/21 10:46 Ketorolac 30 Mg/1 Ml Inj IV 12/12/21 10:59 30 mg Q6H VITO Administration Ondansetron HCl 4 mg 12/11/21 10:07 Ondansetron 4 Mg/2 Ml Inj IV 12/14/21 10:05 Q6H PRN Nausea Sodium Chloride 10 ml 12/05/21 22:00 12/11/21 10:47 Sodium Chloride 0.9% 10 Ml Flush Syringe IV 10 ml BID VITO Administration Sodium Chloride 10 ml 12/05/21 21:41 Sodium Chloride 0.9% 10 Ml Flush Syringe IV PRN PRN LINE FLUSH Tramadol HCl 25 mg 12/10/21 17:47 Tramadol 50 Mg Tab PO Q4H PRN Pain, Moderate (4-6) Nutrition/Malnutrition Assess - Dietary Evaluation Nutrition/Malnutrition Findings: Nutrition Notes Start: 12/06/21 15:24 Freq: Status: Active Protocol: Document 12/10/21 18:38 VANDANA (Rec: 12/10/21 18:49 VANDANA [id number]) Nutrition Notes Initial or Follow up Brief Note Current Diet Clear Liquids Diet (since D ), Full Liquids Diet (from L 12/11). Height 5 ft 8 in Weight 108.8 kg [place] Body Weight (kg) 63.63 BMI 36.4 Weight change and time frame Discrepancy of 29.421 Kg body weight gain in 4 days reported , clearly a mistake. Not able to contact RN over the phone, will reassess Body weight at F/U. Subjective/Other Information RD consult for routine F/U on Dietary advancement. Diet will advance to Full Liquids tomorrow. No updated reports on Pt's PO intake of meals avalable at the time. Pt states having tolerating well PO diet, and having passing gas and a small BM today, as well as no N/V, according to Progress notes. Percent of energy/protein needs met: Prescribed Full Liquids Diet provides for energy/protein needs (1,155 Kcal/37 g) during LOS. #1 Nutrition Diagnosis Predicted suboptimal energy intake Comments: Pt states having tolerating well PO diet, and having passing gas and a small BM today, as well as no N/V, according to Progress notes. Diagnosis Progress(for reassessment Resolved documentation) Nutrition Intervention Follow-Up By: 12/18/21 Additional Comments Continue monitoring food tolerance, %PO intake of meals , and BM.
--- NOTE | 2021-12-11 16:02 | Progress Note ---
Assessment and Plan 36 yo F s/p laparoscopic hand assisted lysis of adhesions, ileocecectomy, POD 4 for perforated appendicitis with abscess Ucx - negative Bl cx - negative x 4 days Plan: 1. adv to soft det 2. IV abx - zosyn -we will transition to p.o. Augmentin at discharge - total of 14 days of antibiotics since admission 3. prn pain and nausea control - stop tylenol per pt request. Will start tramadol. 4. OOB/ambulate 5. IS/pulm toilet 6. ice to incisions 7. monitor JACKLYN drain output - likely will send home with JACKLYN 8. OK to dc home - pt to follow up in surgery clinic in 10 days. Thank you, please call with questions. Subjective Date of service: 12/11/21 Narrative: Pt seen and examined. No acute complaints. Riki diet. No n/v. +Flatus. Ambulating. Objective Vital Signs - 12hr 12/11/21 12/11/21 12/11/21 04:35 07:59 11:11 Temperature 99.1 F 99.0 F Pulse Rate 94 H 88 Respiratory 16 16 Rate Blood Pressure 113/72 117/80 O2 Sat by Pulse 96 98 99 Oximetry - General physical appearance Narrative Exam: Gen.: Awake, alert, oriented x3. No apparent distress ENT: Trachea midline. No lymphadenopathy. No scleral icterus or conjunctival pallor CV: S1, S2 present Respiratory: No audible wheezes Abdomen: Soft, nondistended, nontender. Incisions c/d/i. JACKLYN serous. No rebound, rigidity, guarding Extremities: No clubbing, cyanosis, edema JACKLYN - 315cc/24 hr - Labs 12/09/21 05:21 12/09/21 05:21
[2021-12-12 05:16] VITALS: BP 133/78
[2021-12-12] MEDS: PIPERACIL/TAZOBACTA 4.5/NS 100 4.5 GM/100 ML VIAL IV SCH (05:40)
[2021-12-12] MEDS: KETOROLAC 30 MG/1 ML INJ IV SCH (05:40)
--- NOTE | 2021-12-12 07:54 | Discharge Summary ---
Providers - Providers Date of Admission: 12/05/21 21:41 Date of discharge: 12/12/21 Attending physician: MATTHIAS REYNAGA MD 12/05/21 21:28 Consult to Physician [CONS] Stat Comment: ROSAS David spoke with Dr. Baker @ 2121 Consulting Provider: DARINEL BAKER Physician Instructions: Reason For Exam: Perforated Appendicitis Primary care physician: [facility] [employer] Hospitalization Reason for admission: perforated appendicitis Condition: Stable Procedures: Laparoscopic hand-assisted lysis of adhesions, ileocecectomy-12/06/2021 Hospital course: 36-year-old female with no significant past medical history, who presented with right lower quadrant pain. CT abdomen/pelvis was significant for moderately severe inflammatory process in the right lower quadrant, with associated extraluminal gas. She was started on empiric antibiotics. Blood cultures and urine cultures were negative. General surgery was consulted and lysis of adhesions and ileocecectomy was performed on 12/06. Patient began to clinically improve. Once stable, she was discharged home with a course of Augmentin. Disposition: 01 HOME / SELF CARE / HOMELESS Final Discharge Diagnosis (Prints w/discharge instructions): Sepsis secondary to acute perforated appendicitis. Hypokalemia. Obesity Time spent for discharge: 45 minutes Core Measure Documentation - Palliative Care Palliative Care/ Comfort Measures: Not Applicable - Core Measures Any of the following diagnoses?: none Exam - Physical Exam Narrative exam: GENERAL: Well-developed well-nourished. Sitting on the side of the bed in no acute distress. HEENT: Normocephalic. Atraumatic. NECK: Supple. CHEST/LUNGS: CTAB on room air HEART/CARDIOVASCULAR: RRR. No murmur, rubs or gallops appreciated. ABDOMEN: JACKLYN drain draining clear fluid. +BS. ND. Mildly tender to palpation SKIN: No rashes noted. NEURO: No focal motor deficit. Follows all commands. EXTREMITIES: No cyanosis, clubbing or edema. PSYCH: Cooperative. - Constitutional Vitals: Temp Pulse Resp BP Pulse Ox 98.7 F 80 18 133/78 98 12/12/21 04:37 12/12/21 04:37 12/12/21 06:10 12/12/21 04:37 12/12/21 07:32 Plan Care Plan Goals: Please have your primary care doctor at your earliest convenience. Please follow-up with Dr. Baker 10 days after discharge. It is okay to apply ice to your surgical wounds for discomfort. Please complete the antibiotic as prescribed. Follow up with: DARINEL BAKER DO [Staff Physician] - 14 Days PRIMARY CARE, [Primary Care Provider] - 7 Days Prescriptions: Amoxicillin/K Clav Tab [Augmentin 875 mg] 1 tab PO Q12HR 8 Days #16 tab Ketorolac [Toradol] 10 mg PO Q6H PRN 3 Days #12 tab PRN Reason: Pain Ondansetron [Zofran ODT TAB] 4 mg PO Q8HR PRN 3 Days #9 tab.rapdis PRN Reason: Nausea
[2021-12-12 08:10] LABS: Hematocrit 28.4 % (30.3-42.9); Mean Corpuscular HGB Conc 32 % (30-34); Mean Corpuscular Volume 72 fl (79-97); Platelet Count 397 K/mm3 (140-440); Red Blood Count 3.94 M/mm3 (3.65-5.03); Red Cell Distribution Width 17.8 % (13.2-15.2)
[2021-12-12 08:18] LABS: BUN/Creatinine Ratio 5; Blood Urea Nitrogen 4 mg/dL (7-17); Calcium 8.7 mg/dL (8.4-10.2); Hemolysis Index 0
== END 2021-12-12 09:35 | disposition home or self-care (01) | DRG 853 ==
LOC: ED 18:10 → 3A 21:41
PROVIDERS: ADMIT Hospitalist; ATTEND Student in an Organized Health Care Education/Training Program
PROC: 0DBH4ZZ Excision of Cecum, Percutaneous Endoscopic Approach (ICD-10-PCS; principal; 2021-12-06)
PROC: 0DTJ4ZZ Resection of Appendix, Percutaneous Endoscopic Approach (ICD-10-PCS; 2021-12-06)
DX: A41.89 Other specified sepsis (principal); K35.32 Acute appendicitis with perforation, localized peritonitis, and gangrene, without abscess; E87.6 Hypokalemia; E66.9 Obesity, unspecified; Z68.36 Body mass index [BMI] 36.0-36.9, adult
CPT/HCPCS: 36415; 74177; 80048; 80053; 80076; 81001; 82140; 83690; 84703; 85007; 85025; 85027; 86850; 86900; 86901; 87040; 87086; 88307; 94640; 94760; G0378; J1815; J3480; J3490; J7070; J7120; Q0162; J1170; J1885; J2250; J2270; J2405; J2543; J2704; J2710; J3010; J7030; Q9967